=== PATIENT | female | born 1980 | race Caucasian/White ===

== ENCOUNTER 2016-05-08 04:02 | Emergency (ER) | payer BC ==
[2016-05-08] MEDS ORDERED: Sodium Chloride 0.9% 1,000 ML IV ONE (04:24)
[2016-05-08] MEDS ORDERED: Ondansetron 4 MG/2 ML SDV IVPUSH ONE (04:24)
[2016-05-08] MEDS ORDERED: Ketorolac 30 MG/ML SDV IVPUSH ONE (04:25)
[2016-05-08 05:07] LABS: CHLORIDE,CL 100 mmol/L (98-110); SODIUM,NA 134 mmol/L (136-146)
--- NOTE | 2016-05-08 06:50 | EDM.PDOC ---
ED HPI GENERAL MEDICAL PROBLEM - General Chief Complaint: Abdominal Pain Stated Complaint: ABDOMINAL PAIN/HARD TIME BREATHING Time Seen by Provider: 05/08/16 06:01 - History of Present Illness INITIAL COMMENTS - FREE TEXT/NARRATIVE: HISTORY AND PHYSICAL: History of present illness: Patient is a 36-year-old white female who presents with chief complaint of abdominal pain and nausea without vomiting worsening over last 24 hours patient does drink alcohol regularly denies a history of pancreatitis peptic ulcer disease or other concern. She denies trauma denies gallbladder disease or . Review of systems: As per history of present illness and below otherwise all systems reviewed and negative. Past medical history: As per history of present illness and as reviewed below otherwise noncontributory. Surgical history: As per history of present illness and as reviewed below otherwise noncontributory. Social history: No reported history of drug or alcohol abuse. Family history: As per history of present illness and as reviewed below otherwise noncontributory. Physical exam: HEENT: Atraumatic, normocephalic, pupils reactive, negative for conjunctival pallor mild scleral icterus noted, mucous membranes dry, throat clear, neck supple, nontender, trachea midline. Lungs: Clear to auscultation, breath sounds equal bilaterally, chest nontender. Heart: S1S2, regular, negative for clicks, rubs, or JVD. Abdomen: Soft, nondistended, significant tenderness in the upper abdomen mild guarding no rebound. Negative for masses or hepatosplenomegaly. Negative for costovertebral tenderness. Pelvis: Stable nontender. Genitourinary: Deferred. Rectal: Deferred. Extremities: Atraumatic, negative for cords or calf pain. Neurovascular unremarkable. Neuro: Awake, alert, oriented. Cranial nerves II through XII unremarkable. Cerebellum unremarkable. Motor and sensory unremarkable throughout. Exam nonfocal. Diagnostics: CBC CMP lipase amylase UA hCG CT abdomen and pelvis Therapeutics: Normal saline 1 L bolus Toradol 30 mg IV Zofran 4 mg IV Impression: #1 abdominal pain #2 pancreatitis Definitive disposition and diagnosis as appropriate pending reevaluation and review of above. Abdomen Pain Score (Numeric/FACES): 9 - Related Data Allergies Allergy/AdvReac Type Severity Reaction Status Date / Time amoxicillin Allergy Hives Verified 05/08/16 04:14 Penicillins Allergy Hives Verified 09/13/13 03:48 Home Meds: Home Meds Lisinopril 10 mg PO DAILY 05/08/16 [History] Past Medical History - Past Health History Medical/Surgical History: Denies Medical/Surgical History Cardiovascular History: Reports: Hypertension - Past Surgical History Musculoskeletal Surgical History: Reports: Other (see below) Other Musculoskeletal Surgeries/Procedures:: knee surgery Social & Family History - Family History Family Medical History: Noncontributory - Tobacco Use Smoking Status *Q: Current Every Day Smoker Years of Tobacco use: 20 Packs/Tins Daily: 1 - Alcohol Use Days Per Week of Alcohol Use: 7 Number of Drinks Per Day: 2 Total Drinks Per Week: 14 - Recreational Drug Use Recreational Drug Use: No ED ROS GENERAL - Review of Systems Review Of Systems: ROS reveals no pertinent complaints other than HPI. ED EXAM, GENERAL - Physical Exam Exam: See Below (See dictation) Course - Vital Signs Text/Narrative:: I discussed case with hospitalist who feels in light of her liver function tests CT scan and clinical presentation that she would be best served at tertiary care with availability of gastroenterology for consult as needed. I discussed this with patient and family request transfer to [facility]. I discussed case with through one call. He was hospitalist content assistant case was discussed including reason for transfer patient request and our resource limitations. refused to accept patient in transfer. I discussed at length with my concerns regarding his decision. Case was again discussed with patient and family who request discharge and state they will proceed to say in a [place] via private vehicle. All medical records were sent with patient will be discharged AMA. Last Recorded V/S: Last Vital Signs Temp 37.2 C 05/08/16 04:15 Pulse 147 H 05/08/16 04:15 Resp 18 05/08/16 04:15 BP 135/97 H 05/08/16 04:15 Pulse Ox 99 05/08/16 04:15 - Orders/Labs/Meds Orders: Active Orders 24 hr Category Date Time Status Abdomen Pelvis wo Cont [CT] Stat Exams 05/08/16 04:25 Taken Labs: Laboratory Tests 05/08/16 05/08/16 05/08/16 Range/Units 04:20 04:20 04:29 WBC 5.35 (4.0-11.0) K/uL RBC 3.58 L (4.30-5.90) M/uL Hgb 13.0 (12.0-16.0) g/dL Hct 37.1 (36.0-46.0) % MCV 103.6 H (80.0-98.0) fL MCH 36.3 H (27.0-32.0) pg MCHC 35.0 (31.0-37.0) g/dL RDW Std Deviation 48.1 (28.0-62.0) fl RDW Coeff of Alverto 13 (11.0-15.0) % Plt Count 86 L (150-400) K/uL MPV 10.50 (7.40-12.00) fL Neut % (Auto) 73.1 (48.0-80.0) % Lymph % (Auto) 12.5 L (16.0-40.0) % [place] % (Auto) 13.6 (0.0-15.0) % Eos % (Auto) 0.6 (0.0-7.0) % Baso % (Auto) 0.2 (0.0-1.5) % Neut # (Auto) 3.9 (1.4-5.7) K/uL Lymph # (Auto) 0.7 (0.6-2.4) K/uL [place] # (Auto) 0.7 (0.0-0.8) K/uL Eos # (Auto) 0.0 (0.0-0.7) K/uL Baso # (Auto) 0.0 (0.0-0.1) K/uL Nucleated RBC % 0.0 /100WBC Nucleated RBCs # 0 K/uL Sodium (136-146) mmol/L Potassium (3.5-5.1) mmol/L Chloride (98-110) mmol/L Carbon Dioxide (21-31) mmol/L BUN (6.0-23.0) mg/dL Creatinine (0.6-1.5) mg/dL Est Cr Clr Drug Dosing mL/min Estimated GFR (MDRD) ml/min Glucose (60-110) mg/dL Calcium (8.8-10.8) mg/dL Total Bilirubin (0.1-1.5) mg/dL AST (5-40) IU/L ALT (8-54) IU/L Alkaline Phosphatase (40-150) Total Protein (6.0-8.0) g/dL Albumin (3.5-5.0) g/dL Globulin (2.0-3.5) g/dL Albumin/Globulin Ratio (1.3-2.8) Lipase (7-80) U/L Urine Color DARK YELLOW Urine Appearance SLT CLOUDY Urine pH 7.5 (5.0-8.0) Ur Specific [place] 1.010 (1.001-1.035) Urine Protein NEGATIVE (NEGATIVE) mg/dL Urine Glucose (UA) NEGATIVE (NEGATIVE) mg/dL Urine Ketones 15 H (NEGATIVE) mg/dL Urine Occult Blood NEGATIVE (NEGATIVE) Urine Nitrite NEGATIVE (NEGATIVE) Urine Bilirubin MODERATE H (NEGATIVE) Urine Urobilinogen 4.0 H (<2.0) EU/dL Ur Leukocyte Esterase NEGATIVE (NEGATIVE) Urine RBC 0-1 (0-2/HPF) Urine WBC 0-1 (0-5/HPF) Ur Epithelial Cells FEW (NONE-FEW) Urine Bacteria RARE (NEGATIVE) Urine Mucus LIGHT (NONE-MOD) Urine HCG, Qual NEGATIVE (NEGATIVE) 05/08/16 Range/Units 04:29 WBC (4.0-11.0) K/uL RBC (4.30-5.90) M/uL Hgb (12.0-16.0) g/dL Hct (36.0-46.0) % MCV (80.0-98.0) fL MCH (27.0-32.0) pg MCHC (31.0-37.0) g/dL RDW Std Deviation (28.0-62.0) fl RDW Coeff of Alverto (11.0-15.0) % Plt Count (150-400) K/uL MPV (7.40-12.00) fL Neut % (Auto) (48.0-80.0) % Lymph % (Auto) (16.0-40.0) % [place] % (Auto) (0.0-15.0) % Eos % (Auto) (0.0-7.0) % Baso % (Auto) (0.0-1.5) % Neut # (Auto) (1.4-5.7) K/uL Lymph # (Auto) (0.6-2.4) K/uL [place] # (Auto) (0.0-0.8) K/uL Eos # (Auto) (0.0-0.7) K/uL Baso # (Auto) (0.0-0.1) K/uL Nucleated RBC % /100WBC Nucleated RBCs # K/uL Sodium 134 L (136-146) mmol/L Potassium 3.3 L (3.5-5.1) mmol/L Chloride 100 (98-110) mmol/L Carbon Dioxide 23 (21-31) mmol/L BUN 3 L (6.0-23.0) mg/dL Creatinine 0.7 (0.6-1.5) mg/dL Est Cr Clr Drug Dosing 98.05 mL/min Estimated GFR (MDRD) > 60.0 ml/min Glucose 93 (60-110) mg/dL Calcium 8.5 L (8.8-10.8) mg/dL Total Bilirubin 4.6 H (0.1-1.5) mg/dL AST 361 H (5-40) IU/L ALT 177 H (8-54) IU/L Alkaline Phosphatase 137 (40-150) Total Protein 6.9 (6.0-8.0) g/dL Albumin 3.3 L (3.5-5.0) g/dL Globulin 3.6 H (2.0-3.5) g/dL Albumin/Globulin Ratio 0.9 L (1.3-2.8) Lipase 617 H (7-80) U/L Urine Color Urine Appearance Urine pH (5.0-8.0) Ur Specific [place] (1.001-1.035) Urine Protein (NEGATIVE) mg/dL Urine Glucose (UA) (NEGATIVE) mg/dL Urine Ketones (NEGATIVE) mg/dL Urine Occult Blood (NEGATIVE) Urine Nitrite (NEGATIVE) Urine Bilirubin (NEGATIVE) Urine Urobilinogen (<2.0) EU/dL Ur Leukocyte Esterase (NEGATIVE) Urine RBC (0-2/HPF) Urine WBC (0-5/HPF) Ur Epithelial Cells (NONE-FEW) Urine Bacteria (NEGATIVE) Urine Mucus (NONE-MOD) Urine HCG, Qual (NEGATIVE) Meds: Medications Discontinued Medications Generic Name Dose Route Start Last Admin Trade Name Freq PRN Reason Stop Dose Admin Sodium Chloride 1,000 mls @ 999 mls/hr 05/08/16 04:24 05/08/16 04:36 Normal Saline IV 05/08/16 05:24 999 mls/hr .Bolus ONE Administration Ketorolac Tromethamine 30 mg 05/08/16 04:25 05/08/16 04:36 Toradol IVPUSH 05/08/16 04:26 30 mg ONETIME ONE Administration Ondansetron HCl 4 mg 05/08/16 04:24 05/08/16 04:36 Zofran IVPUSH 05/08/16 04:25 4 mg ONETIME ONE Administration Departure - Departure Time of Disposition: 06:50 Disposition: Against Medical Advice 07 Condition: good Clinical Impression: Acute pancreatitis Instructions: Acute Pancreatitis, [id number] Referrals: PCP,None [Primary Care Provider] - Forms: ED Department Discharge Additional Instructions: The following information is given to patients seen in the emergency department who are being discharged to home. This information is to outline your options for follow-up care. We provide all patients seen in our emergency department with a follow-up referral. The need for follow-up, as well as the timing and circumstances, are variable depending upon the specifics of your emergency department visit. If you don't have a primary care physician on staff, we will provide you with a referral. We always advise you to contact your personal physician following an emergency department visit to inform them of the circumstance of the visit and for follow-up with them and/or the need for any referrals to a consulting specialist. The emergency department will also refer you to a specialist when appropriate. This referral assures that you have the opportunity for followup care with a specialist. All of these measure are taken in an effort to provide you with optimal care, which includes your followup. Under all circumstances we always encourage you to contact your private physician who remains a resource for coordinating your care. When calling for followup care, please make the office aware that this follow-up is from your recent emergency room visit. If for any reason you are refused follow-up, please contact the [facility] emergency department at and asked to speak to the emergency department charge nurse. Followup as discussed [facility] with [facility] as planned return as needed as discussed. - My Orders Last 24 Hours: My Active Orders 05/08/16 04:25 Abdomen Pelvis wo Cont [CT] Stat - Assessment/Plan Last 24 Hours: My Active Orders 05/08/16 04:25 Abdomen Pelvis wo Cont [CT] Stat
[2016-05-08 07:06] VITALS: BP 114/86
--- NOTE | 2016-05-08 19:43 | CT ---
MEXAM DATE: 05/08/16 PATIENT'S AGE: 36 Patient: ROBERTH DE GUZMAN Facility: [place], [place] Site . Site : 1980 Study: CT Abdomen/Pelvis [id number]/[id number] 5:03:31 AM Ordering Physician: Doctor Sotomayor Final Report: INDICATION: Slight fever. TECHNIQUE: CT abdomen and pelvis acquired without contrast. COMPARISON: None. FINDINGS: Lower chest: Bibasilar scarring or atelectasis, left greater than right. No pleural or pericardial effusions. Liver: Fatty change. The unenhanced liver is otherwise unremarkable. Spleen: Unremarkable. Pancreas: Mild peripancreatic stranding. There is heterogeneous stranding which extends into the mesentery and retroperitoneum. No well-defined peripancreatic fluid collection. Gallbladder and bile ducts: Unremarkable. Kidneys: Unremarkable. Adrenal glands: Unremarkable. GI tract: No bowel obstruction. The appendix is normal in appearance. Small to moderate amount of pelvic free fluid. Vascular structures: Unremarkable. Lymph nodes: Unremarkable. Pelvic Organs: Uterus, bilateral adnexal regions and urinary bladder as imaged are unremarkable. Bones: No acute abnormality. IMPRESSION: Acute pancreatitis. No well-defined peripancreatic fluid collection or evidence of ghazal pancreatic necrosis. Small to moderate amount of pelvic free fluid. Fatty change of the liver. Dictated by Valentin Iverson MD @ 05/08/2016 5:15:57 AM Dictated by: Valentin Iverson MD @ 05/08/2016 05:16:22 (Electronic Signature) Report Signed by Proxy and Original Signed Document filed in the Medical Record. MTDD
== END 2016-05-08 07:02 | disposition left against medical advice (07) ==
LOC: MW.ED 04:02
DX: K85.90 Acute pancreatitis without necrosis or infection, unspecified (principal); I10 Essential (primary) hypertension; F17.210 Nicotine dependence, cigarettes, uncomplicated; Z88.0 Allergy status to penicillin; Z88.1 Allergy status to other antibiotic agents
CPT/HCPCS: 36415; 74176; 80053; 81001; 81025; 83690; 85025; 96361; 96374; 96375; 99284; J1885; J2405; J7040

== ENCOUNTER 2016-10-04 12:22 | Inpatient (IN) | payer BC ==
[2016-10-04] MEDS ORDERED: Sodium Chloride 0.9% 1,000 ML IV ONE (12:34)
[2016-10-04] MEDS ORDERED: Sodium Chloride 0.9% 10 ML Syringe FLUSH PRN (12:34)
[2016-10-04] MEDS ORDERED: Sodium Chloride 0.9% 2.5 ML Syringe FLUSH PRN (12:34)
[2016-10-04] MEDS ORDERED: Ondansetron 4 MG/2 ML SDV IVPUSH ONE (12:38)
--- NOTE | 2016-10-04 12:38 | EDM.PDOC ---
ED HPI GENERAL MEDICAL PROBLEM - General Chief Complaint: General Stated Complaint: SOB,BACK AND ABDOMINAL PAIN Time Seen by Provider: 10/04/16 12:23 - History of Present Illness INITIAL COMMENTS - FREE TEXT/NARRATIVE: HISTORY AND PHYSICAL: History of present illness: Patient 36-year-old female history of pancreatitis and alcohol abuse who presents with concern of abdominal pain this been worse over the last 24-48 hours she also complains of back pain some shortness of breath she denies vomiting diarrhea vaginal discharge or irregular bleeding or other complaints Review of systems: As per history of present illness and below otherwise all systems reviewed and negative. Past medical history: As per history of present illness and as reviewed below otherwise noncontributory. Surgical history: As per history of present illness and as reviewed below otherwise noncontributory. Social history: No reported history of drug or alcohol abuse. Family history: As per history of present illness and as reviewed below otherwise noncontributory. Physical exam: HEENT: Atraumatic, normocephalic, pupils reactive, negative for conjunctival pallor or scleral icterus, mucous membranes moist, throat clear, neck supple, nontender, trachea midline. Lungs: Clear to auscultation, breath sounds equal bilaterally, chest nontender. Heart: S1S2, regular, negative for clicks, rubs, or JVD. Abdomen: Soft, nondistended, tenderness across her upper abdomen to deep palpation no rebound no guarding. Negative for masses or hepatosplenomegaly. Negative for costovertebral tenderness. Pelvis: Stable nontender. Genitourinary: Deferred. Rectal: Deferred. Extremities: Atraumatic, negative for cords or calf pain. Neurovascular unremarkable. Neuro: Awake, alert, oriented. Cranial nerves II through XII unremarkable. Cerebellum unremarkable. Motor and sensory unremarkable throughout. Exam nonfocal. Diagnostics: CBC CMP troponin BNP lipase PT/INR chest x-ray EKG CT of abdomen and pelvis Therapeutics: Normal saline 1 L bolus Zofran 4 mg IV Impression: #1 abdominal pain #2 history of pancreatitis #3 history of alcohol abuse Definitive disposition and diagnosis as appropriate pending reevaluation and review of above. Abdominal Pain Score (Numeric/FACES): 10 - Related Data Allergies Allergy/AdvReac Type Severity Reaction Status Date / Time amoxicillin Allergy Hives Verified 05/08/16 04:14 Penicillins Allergy Hives Verified 09/13/13 03:48 Home Meds: Home Meds Lisinopril 10 mg PO DAILY 05/08/16 [History] Past Medical History - Past Health History Medical/Surgical History: Denies Medical/Surgical History Cardiovascular History: Reports: Hypertension - Past Surgical History Musculoskeletal Surgical History: Reports: Other (See Below) Social & Family History - Family History Family Medical History: Noncontributory - Tobacco Use Smoking Status *Q: Current Every Day Smoker Years of Tobacco use: 10 Packs/Tins Daily: 0.5 - Alcohol Use Days Per Week of Alcohol Use: 5 Number of Drinks Per Day: 4 Total Drinks Per Week: 20 - Recreational Drug Use Recreational Drug Use: No ED ROS GENERAL - Review of Systems Review Of Systems: ROS reveals no pertinent complaints other than HPI. ED EXAM, GENERAL - Physical Exam Exam: See Below (See dictated) Course - Vital Signs Last Recorded V/S: Last Vital Signs Temp 35.8 C 10/04/16 12:24 Pulse 82 10/04/16 12:24 Resp 18 10/04/16 12:24 BP 180/98 H 10/04/16 12:24 Pulse Ox 99 10/04/16 12:24 - Orders/Labs/Meds Orders: Active Orders 24 hr Category Date Time Status EKG Documentation Completion [RC] STAT Care 10/04/16 12:33 Active Pulse Oximetry [RC] ASDIRECTED Care 10/04/16 12:33 Active Abdomen Pelvis w Cont [CT] Stat Exams 10/04/16 12:34 Ordered COMPREHENSIVE METABOLIC PN,CMP [CHEM] Stat Lab 10/04/16 12:42 Results CULTURE BLOOD [BC] Stat Lab 10/04/16 12:42 Received CULTURE BLOOD [BC] Stat Lab 10/04/16 12:53 Received DRUG SCREEN, URINE [URCHEM] Stat Lab 10/04/16 12:39 Uncollected ETHANOL BLOOD MEDICAL [CHEM] Stat Lab 10/04/16 12:42 Results LIPASE [CHEM] Stat Lab 10/04/16 12:42 Results UA W/MICROSCOPIC [URIN] Stat Lab 10/04/16 12:34 Uncollected Sodium Chloride 0.9% [Saline Flush] Med 10/04/16 12:34 Active 10 ml FLUSH ASDIRECTED PRN Sodium Chloride 0.9% [Saline Flush] Med 10/04/16 12:34 Active 2.5 ml FLUSH ASDIRECTED PRN Blood Culture x2 Reflex Set [OM.PC] Stat Oth 10/04/16 12:34 Ordered Saline Lock Insert [OM.PC] Stat Ot 10/04/16 12:33 Ordered Medication Orders Sodium Chloride (Saline Flush) 10 ml FLUSH ASDIRECTED PRN PRN Reason: Keep Vein Open Sodium Chloride (Saline Flush) 2.5 ml FLUSH ASDIRECTED PRN PRN Reason: Keep Vein Open Labs: Laboratory Tests 10/04/16 10/04/16 10/04/16 Range/Units 12:42 12:42 12:42 WBC 8.98 (4.0-11.0) K/uL RBC 4.22 L (4.30-5.90) M/uL Hgb 15.2 (12.0-16.0) g/dL Hct 41.7 (36.0-46.0) % MCV 98.8 H (80.0-98.0) fL MCH 36.0 H (27.0-32.0) pg MCHC 36.5 (31.0-37.0) g/dL RDW Std Deviation 43.7 (28.0-62.0) fl RDW Coeff of Alverto 12 (11.0-15.0) % Plt Count 185 (150-400) K/uL MPV 9.70 (7.40-12.00) fL Neut % (Auto) 88.6 H (48.0-80.0) % Lymph % (Auto) 7.0 L (16.0-40.0) % [place] % (Auto) 4.3 (0.0-15.0) % Eos % (Auto) 0.0 (0.0-7.0) % Baso % (Auto) 0.1 (0.0-1.5) % Neut # (Auto) 8.0 H (1.4-5.7) K/uL Lymph # (Auto) 0.6 (0.6-2.4) K/uL [place] # (Auto) 0.4 (0.0-0.8) K/uL Eos # (Auto) 0.0 (0.0-0.7) K/uL Baso # (Auto) 0.0 (0.0-0.1) K/uL Nucleated RBC % 0.0 /100WBC Nucleated RBCs # 0 K/uL INR 1.05 (0.86-1.11) Sodium 136 (136-146) mmol/L Potassium 3.6 (3.5-5.1) mmol/L Chloride 99 (98-110) mmol/L Carbon Dioxide 18 L (21-31) mmol/L BUN 6 (6.0-23.0) mg/dL Creatinine 0.7 (0.6-1.5) mg/dL Est Cr Clr Drug Dosing 98.05 mL/min Estimated GFR (MDRD) > 60.0 ml/min Glucose 116 H (60-110) mg/dL Calcium 9.6 (8.8-10.8) mg/dL Total Bilirubin 1.5 (0.1-1.5) mg/dL AST 100 H (5-40) IU/L ALT 65 H (8-54) IU/L Alkaline Phosphatase 122 (40-150) Troponin I (0.0-0.29) NG/ML B-Natriuretic Peptide (<100) PG/ML Total Protein 8.2 H (6.0-8.0) g/dL Albumin 4.2 (3.5-5.0) g/dL Globulin 4.0 H (2.0-3.5) g/dL Albumin/Globulin Ratio 1.1 L (1.3-2.8) HCG, Qual (NEG) Ethyl Alcohol 17.1 mg/dL 10/04/16 10/04/16 10/04/16 Range/Units 12:42 12:42 12:42 WBC (4.0-11.0) K/uL RBC (4.30-5.90) M/uL Hgb (12.0-16.0) g/dL Hct (36.0-46.0) % MCV (80.0-98.0) fL MCH (27.0-32.0) pg MCHC (31.0-37.0) g/dL RDW Std Deviation (28.0-62.0) fl RDW Coeff of Alverto (11.0-15.0) % Plt Count (150-400) K/uL MPV (7.40-12.00) fL Neut % (Auto) (48.0-80.0) % Lymph % (Auto) (16.0-40.0) % [place] % (Auto) (0.0-15.0) % Eos % (Auto) (0.0-7.0) % Baso % (Auto) (0.0-1.5) % Neut # (Auto) (1.4-5.7) K/uL Lymph # (Auto) (0.6-2.4) K/uL [place] # (Auto) (0.0-0.8) K/uL Eos # (Auto) (0.0-0.7) K/uL Baso # (Auto) (0.0-0.1) K/uL Nucleated RBC % /100WBC Nucleated RBCs # K/uL INR (0.86-1.11) Sodium (136-146) mmol/L Potassium (3.5-5.1) mmol/L Chloride (98-110) mmol/L Carbon Dioxide (21-31) mmol/L BUN (6.0-23.0) mg/dL Creatinine (0.6-1.5) mg/dL Est Cr Clr Drug Dosing mL/min Estimated GFR (MDRD) ml/min Glucose (60-110) mg/dL Calcium (8.8-10.8) mg/dL Total Bilirubin (0.1-1.5) mg/dL AST (5-40) IU/L ALT (8-54) IU/L Alkaline Phosphatase (40-150) Troponin I < 0.10 (0.0-0.29) NG/ML B-Natriuretic Peptide 27 (<100) PG/ML Total Protein (6.0-8.0) g/dL Albumin (3.5-5.0) g/dL Globulin (2.0-3.5) g/dL Albumin/Globulin Ratio (1.3-2.8) HCG, Qual NEGATIVE (NEG) Ethyl Alcohol mg/dL Meds: Medications Generic Name Dose Route Start Last Admin Trade Name Freq PRN Reason Stop Dose Admin Sodium Chloride 10 ml 10/04/16 12:34 Saline Flush FLUSH ASDIRECTED PRN Keep Vein Open Sodium Chloride 2.5 ml 10/04/16 12:34 Saline Flush FLUSH ASDIRECTED PRN Keep Vein Open Discontinued Medications Generic Name Dose Route Start Last Admin Trade Name Freq PRN Reason Stop Dose Admin Hydromorphone HCl 1 mg 10/04/16 12:49 10/04/16 12:58 Dilaudid IVPUSH 10/04/16 12:50 1 mg ONETIME ONE Administration Sodium Chloride 1,000 mls @ 999 mls/hr 10/04/16 12:34 10/04/16 12:53 Normal Saline IV 10/04/16 13:34 999 mls/hr STAT ONE Administration Iopamidol 100 ml 10/04/16 13:50 10/04/16 13:59 Isovue Multipack-370 (76%) IVPUSH 10/04/16 13:51 100 ml ONETIME STA Administration Ondansetron HCl 4 mg 10/04/16 12:38 10/04/16 12:54 Zofran IVPUSH 10/04/16 12:39 4 mg ONETIME ONE Administration Departure - Departure Time of Disposition: 14:04 Disposition: Admitted As Inpatient 66 Condition: Good Clinical Impression: Abdominal pain - Discharge Information Forms: ED Department Discharge - My Orders Last 24 Hours: My Active Orders 10/04/16 12:33 EKG Documentation Completion [RC] STAT Pulse Oximetry [RC] ASDIRECTED Saline Lock Insert [OM.PC] Stat 10/04/16 12:34 Abdomen Pelvis w Cont [CT] Stat UA W/MICROSCOPIC [URIN] Stat Sodium Chloride 0.9% [Saline Flush] 10 ml FLUSH ASDIRECTED PRN Sodium Chloride 0.9% [Saline Flush] 2.5 ml FLUSH ASDIRECTED PRN Blood Culture x2 Reflex Set [OM.PC] Stat 10/04/16 12:39 DRUG SCREEN, URINE [URCHEM] Stat 10/04/16 12:42 COMPREHENSIVE METABOLIC PN,CMP [CHEM] Stat CULTURE BLOOD [BC] Stat ETHANOL BLOOD MEDICAL [CHEM] Stat LIPASE [CHEM] Stat 10/04/16 12:53 CULTURE BLOOD [BC] Stat - Assessment/Plan Last 24 Hours: My Active Orders 10/04/16 12:33 EKG Documentation Completion [RC] STAT Pulse Oximetry [RC] ASDIRECTED Saline Lock Insert [OM.PC] Stat 10/04/16 12:34 Abdomen Pelvis w Cont [CT] Stat UA W/MICROSCOPIC [URIN] Stat Sodium Chloride 0.9% [Saline Flush] 10 ml FLUSH ASDIRECTED PRN Sodium Chloride 0.9% [Saline Flush] 2.5 ml FLUSH ASDIRECTED PRN Blood Culture x2 Reflex Set [OM.PC] Stat 10/04/16 12:39 DRUG SCREEN, URINE [URCHEM] Stat 10/04/16 12:42 COMPREHENSIVE METABOLIC PN,CMP [CHEM] Stat CULTURE BLOOD [BC] Stat ETHANOL BLOOD MEDICAL [CHEM] Stat LIPASE [CHEM] Stat 10/04/16 12:53 CULTURE BLOOD [BC] Stat
[2016-10-04] MEDS ORDERED: HYDROmorphone 1 MG/ML Syringe IVPUSH ONE (12:49)
[2016-10-04 13:29] LABS: CHLORIDE,CL 99 mmol/L (98-110); SODIUM,NA 136 mmol/L (136-146)
--- NOTE | 2016-10-04 13:29 | CR ---
EXAMINATION: Portable chest radiograph. HISTORY: Shortness of breath. FINDINGS: The trachea is midline. The cardiomediastinal silhouette is within normal limits. No pulmonary infil trates, effusions or pneumothorax. Osseous structures appear unremarkable. IMPRESSION: No acute cardiopulmonary process.
[2016-10-04] MEDS ORDERED: Iopamidol 755 MG/ML 500 ML Multipack Bottle IVPUSH STA (13:50)
--- NOTE | 2016-10-04 14:19 | CT ---
CT of the abdomen and pelvis with contrast. HISTORY: Pain TECHNIQUE: Axial CT images were obtained of the abdomen and pelvis following administration of 100 m L of Isovue-370 in left antecubital fossa without complication. Coronal and sagittal reconstructions obtained. FINDINGS: The lung bases are clear, no pleural effusion. There is fatty infiltration of the liver. The gallbladder, adrenal glands, and spleen appear normal. There is moderate peripancreatic stranding and fluid noted. No organized peripancreatic collection or hypoenhancement. The splenic vein appears patent. No bulky retroperitoneal lymphadenopathy or abd ominal ascites. The kidneys enhance and function symmetrically without evidence of obstructive uropathy. There is a small amount of free pelvic fluid. The large and small bowel are normal in caliber withou t evidence of obstruction. No focal pericolonic inflammation or stranding. Appendix appears normal. The urinary bladder is decompressed. No pelvic lymphadenopathy. No suspicious osseous abnormalities identified. IMPRESSION: 1. Acute pancreatitis. 2. Fatty infiltration of the liver.
--- NOTE | 2016-10-04 14:21 | PCM.HP ---
H&P History of Present Illness - General Date of Service: 10/04/16 Admit Problem/Dx: Admission Diagnosis/Problem Admission Diagnosis/Problem Abdominal pain Source of Information: Patient, Old Records, Provider - History of Present Illness Initial Comments - Free Text/Narative: She presented to the ED today with abdominal pain . She had a period of heavy alcohol intake yesterday. She was thought to have acute pancreatitis inthe ED and admission was recommended. She reports vomiting She thinks that she has had pancreatitis previously. Abdominal Pain Score (Numeric/FACES): 10 - Related Data Allergies/Adverse Reactions: Allergies Allergy/AdvReac Type Severity Reaction Status Date / Time amoxicillin Allergy Hives Verified 05/08/16 04:14 Penicillins Allergy Hives Verified 09/13/13 03:48 Home Medications: Home Meds Lisinopril 10 mg PO DAILY 05/08/16 [History] Past Medical History - Past Health History Medical/Surgical History: Denies Medical/Surgical History Cardiovascular History: Reports: Hypertension. Denies: Bypass, Heart Failure, [place] Respiratory History: Denies: COPD Gastrointestinal History: Denies: Cirrhosis Genitourinary History: Denies: Chronic Renal Insuffiency Neurological History: Denies: MS Endocrine/Metabolic History: Denies: Diabetes, Type I, Diabetes, Type II Hematologic History: Denies: Bleeding Disorder Oncologic (Cancer) History: Reports: None - Past Surgical History Musculoskeletal Surgical History: Reports: Other (See Below) Social & Family History - Family History Family Medical History: Noncontributory - Tobacco Use Smoking Status *Q: Current Every Day Smoker Years of Tobacco use: 10 Packs/Tins Daily: 0.5 - Alcohol Use Days Per Week of Alcohol Use: 5 Number of Drinks Per Day: 4 Total Drinks Per Week: 20 Alcohol Use Comment: she does not use alcohol daily but sometimes has binge drinking. - Recreational Drug Use Recreational Drug Use: No H&P Review of Systems - Review of Systems: Review Of Systems: See Below General: Denies: Fever, Chills HEENT: Denies: Hearing Changes, Sore Throat Pulmonary: Denies: Shortness of Breath, Cough, Sputum Cardiovascular: Denies: Chest Pain, Palpitations Gastrointestinal: Reports: Abdominal Pain. Denies: Black Stool, Bloody Stool, Hematemesis, Hematochezia Genitourinary: Denies: Dysuria, Frequency, Burning, Pain, Urgency, Hematuria Skin: Denies: Cyanosis Psychiatric: Denies: Confusion, Depression Neurological: Denies: Headache Exam - Exam Exam: See Below - Vital Signs Vital Signs: Last Vital Signs Temp 96.4 F 10/04/16 12:24 Pulse 82 10/04/16 12:24 Resp 18 10/04/16 12:24 BP 180/98 H 10/04/16 12:24 Pulse Ox 99 10/04/16 12:24 Weight: 63.503 kg - Exam General: Alert, Oriented, Cooperative. No: Mild Distress HEENT: EOMI Neck: Supple, Trachea Midline Lungs: Clear to Auscultation, Normal Respiratory Effort Cardiovascular: Regular Rate, Regular Rhythm. No: Irregular Rhythm, Systolic Murmur, Diastolic Murmur GI/Abdominal Exam: Soft, Other (moderate epigastric tenderness) (Female) Exam: Deferred Rectal (Female) Exam: Deferred Neurological: Cranial Nerves Intact, Normal Speech Neuro Extensive - Mental Status: Alert Neuro Extensive - Motor, Sensory, Reflexes: Other (no tremor) Psychiatric: Alert. No: Agitated - Patient Data Lab Results Last 24 hrs: Laboratory Results - last 24 hr 10/04/16 10/04/16 10/04/16 Range/Units 12:42 12:42 12:42 WBC 8.98 (4.0-11.0) K/uL RBC 4.22 L (4.30-5.90) M/uL Hgb 15.2 (12.0-16.0) g/dL Hct 41.7 (36.0-46.0) % MCV 98.8 H (80.0-98.0) fL MCH 36.0 H (27.0-32.0) pg MCHC 36.5 (31.0-37.0) g/dL RDW Std Deviation 43.7 (28.0-62.0) fl RDW Coeff of Alverto 12 (11.0-15.0) % Plt Count 185 (150-400) K/uL MPV 9.70 (7.40-12.00) fL Neut % (Auto) 88.6 H (48.0-80.0) % Lymph % (Auto) 7.0 L (16.0-40.0) % [place] % (Auto) 4.3 (0.0-15.0) % Eos % (Auto) 0.0 (0.0-7.0) % Baso % (Auto) 0.1 (0.0-1.5) % Neut # (Auto) 8.0 H (1.4-5.7) K/uL Lymph # (Auto) 0.6 (0.6-2.4) K/uL [place] # (Auto) 0.4 (0.0-0.8) K/uL Eos # (Auto) 0.0 (0.0-0.7) K/uL Baso # (Auto) 0.0 (0.0-0.1) K/uL Nucleated RBC % 0.0 /100WBC Nucleated RBCs # 0 K/uL INR 1.05 (0.86-1.11) Sodium 136 (136-146) mmol/L Potassium 3.6 (3.5-5.1) mmol/L Chloride 99 (98-110) mmol/L Carbon Dioxide 18 L (21-31) mmol/L BUN 6 (6.0-23.0) mg/dL Creatinine 0.7 (0.6-1.5) mg/dL Est Cr Clr Drug Dosing 98.05 mL/min Estimated GFR (MDRD) > 60.0 ml/min Glucose 116 H (60-110) mg/dL Calcium 9.6 (8.8-10.8) mg/dL Total Bilirubin 1.5 (0.1-1.5) mg/dL AST 100 H (5-40) IU/L ALT 65 H (8-54) IU/L Alkaline Phosphatase 122 (40-150) Troponin I (0.0-0.29) NG/ML B-Natriuretic Peptide (<100) PG/ML Total Protein 8.2 H (6.0-8.0) g/dL Albumin 4.2 (3.5-5.0) g/dL Globulin 4.0 H (2.0-3.5) g/dL Albumin/Globulin Ratio 1.1 L (1.3-2.8) HCG, Qual (NEG) Ethyl Alcohol 17.1 mg/dL 10/04/16 10/04/16 10/04/16 Range/Units 12:42 12:42 12:42 WBC (4.0-11.0) K/uL RBC (4.30-5.90) M/uL Hgb (12.0-16.0) g/dL Hct (36.0-46.0) % MCV (80.0-98.0) fL MCH (27.0-32.0) pg MCHC (31.0-37.0) g/dL RDW Std Deviation (28.0-62.0) fl RDW Coeff of Alverto (11.0-15.0) % Plt Count (150-400) K/uL MPV (7.40-12.00) fL Neut % (Auto) (48.0-80.0) % Lymph % (Auto) (16.0-40.0) % [place] % (Auto) (0.0-15.0) % Eos % (Auto) (0.0-7.0) % Baso % (Auto) (0.0-1.5) % Neut # (Auto) (1.4-5.7) K/uL Lymph # (Auto) (0.6-2.4) K/uL [place] # (Auto) (0.0-0.8) K/uL Eos # (Auto) (0.0-0.7) K/uL Baso # (Auto) (0.0-0.1) K/uL Nucleated RBC % /100WBC Nucleated RBCs # K/uL INR (0.86-1.11) Sodium (136-146) mmol/L Potassium (3.5-5.1) mmol/L Chloride (98-110) mmol/L Carbon Dioxide (21-31) mmol/L BUN (6.0-23.0) mg/dL Creatinine (0.6-1.5) mg/dL Est Cr Clr Drug Dosing mL/min Estimated GFR (MDRD) ml/min Glucose (60-110) mg/dL Calcium (8.8-10.8) mg/dL Total Bilirubin (0.1-1.5) mg/dL AST (5-40) IU/L ALT (8-54) IU/L Alkaline Phosphatase (40-150) Troponin I < 0.10 (0.0-0.29) NG/ML B-Natriuretic Peptide 27 (<100) PG/ML Total Protein (6.0-8.0) g/dL Albumin (3.5-5.0) g/dL Globulin (2.0-3.5) g/dL Albumin/Globulin Ratio (1.3-2.8) HCG, Qual NEGATIVE (NEG) Ethyl Alcohol mg/dL Result Diagrams: 10/04/16 12:42 10/04/16 12:42 *Q Meaningful Use (ADM) - VTE *Q VTE Criteria *Q: - Stroke *Q Stroke Criteria *Q: - AMI *Q AMI Criteria *Q: - Problem List (1) Abdominal pain SNOMED Code(s): 70265963 ICD Code: R10.9 - UNSPECIFIED ABDOMINAL PAIN Status: Acute Current Visit : Yes (2) Alcohol abuse SNOMED Code(s): 71201873 ICD Code: F10.10 - ALCOHOL ABUSE, UNCOMPLICATED Status: Acute Current Visit: Yes (3) Elevated liver enzymes SNOMED Code(s): 897874694 ICD Code: R74.8 - ABNORMAL LEVELS OF OTHER SERUM ENZYMES Status: Acute Current Visit: Yes Problem List Initiated/Reviewed/Updated: Yes Orders Last 24hrs: Active Orders 24 hr Category Date Time Status Patient Status [ADT] Stat ADT 10/04/16 14:06 Active EKG Documentation Completion [RC] STAT Care 10/04/16 12:33 Active Pulse Oximetry [RC] ASDIRECTED Care 10/04/16 12:33 Active Abdomen Pelvis w Cont [CT] Stat Exams 10/04/16 12:34 Taken COMPREHENSIVE METABOLIC PN,CMP [CHEM] Stat Lab 10/04/16 12:42 Results CULTURE BLOOD [BC] Stat Lab 10/04/16 12:42 Received CULTURE BLOOD [BC] Stat Lab 10/04/16 12:53 Received DRUG SCREEN, URINE [URCHEM] Stat Lab 10/04/16 14:10 Ordered ETHANOL BLOOD MEDICAL [CHEM] Stat Lab 10/04/16 12:42 Results LIPASE [CHEM] Stat Lab 10/04/16 12:42 Results UA W/MICROSCOPIC [URIN] Stat Lab 10/04/16 14:10 Ordered Sodium Chloride 0.9% [Saline Flush] Med 10/04/16 12:34 Active 10 ml FLUSH ASDIRECTED PRN Sodium Chloride 0.9% [Saline Flush] Med 10/04/16 12:34 Active 2.5 ml FLUSH ASDIRECTED PRN Blood Culture x2 Reflex Set [OM.PC] Stat Oth 10/04/16 12:34 Ordered Saline Lock Insert [OM.PC] Stat Oth 10/04/16 12:33 Ordered Medication Orders Sodium Chloride (Saline Flush) 10 ml FLUSH ASDIRECTED PRN PRN Reason: Keep Vein Open Sodium Chloride (Saline Flush) 2.5 ml FLUSH ASDIRECTED PRN PRN Reason: Keep Vein Open Assessment/Plan Comment:: abdominal pain. Must consider alcoholic gastritis/ pancreatitis. See orders. Ronal Hernandez MD
[2016-10-04] MEDS ORDERED: Sodium Chloride 0.9% 1,000 ML IV SCH (14:30)
[2016-10-04] MEDS ORDERED: Acetaminophen 325 MG Tab PO PRN (14:30)
[2016-10-04] MEDS ORDERED: LORazepam 2 MG/ML MDV IV PRN (14:30)
[2016-10-04] MEDS ORDERED: Temazepam 15 MG Cap PO PRN (14:30)
[2016-10-04] MEDS ORDERED: Morphine 10 MG/ML Syringe IVPUSH PRN (14:30)
[2016-10-04] MEDS ORDERED: MVI, Adult with Vitamin K 10 ML, Thiamine 100 MG, Folic Acid 1 MG in Sodium Chloride 0.... IV ONE ×4 (15:00)
[2016-10-04] MEDS: Lisinopril 10 MG Tab PO SCH (15:09)
[2016-10-04] MEDS: Ondansetron 4 MG/2 ML SDV IVPUSH PRN ×2 (16:56→23:55)
[2016-10-04] MEDS: Morphine 2 MG/ML Syringe IVPUSH PRN ×2 (18:46→21:39)
[2016-10-05] MEDS: Morphine 2 MG/ML Syringe IVPUSH PRN (00:06)
[2016-10-05] MEDS ORDERED: Pantoprazole 40 MG in Sodium Chloride 0.9% 10 ML IVPUSH SCH (02:30)
[2016-10-05] MEDS ORDERED: Magnesium Sulfate/Water 4 GM in Premix Bag 1 BAG IV ONE (08:23)
[2016-10-05] MEDS ORDERED: Potassium Chloride 40 MEQ in Sodium Chloride 0.9% 500 ML IV ONE (08:23)
[2016-10-05] MEDS: Lisinopril 10 MG Tab PO SCH (09:33)
[2016-10-05] MEDS ORDERED: Potassium Chloride 20 MEQ Tab.ER PO ONE (09:35)
--- NOTE | 2016-10-05 10:51 | US ---
EXAMINATION: Right upper quadrant HISTORY: Elevated LFTs COMPARISON: CT dated 10/04/2016 TECHNIQUE: Grayscale and color Doppler images obtained of the right upper quadrant. FINDINGS: The pancreas appears heterogeneous and hypoechoic. The liver is at least moderately increas ed in generalized echotexture without a focal hepatic mass. The gallbladder wall thickness is normal. No pericholecystic fluid or shadowing gallstones. The right kidney measures at least 10.6 cm pole-to -pole without evidence hydronephrosis. Sonographic Lagunas sign is negative. IMPRESSION: 1. Hypoechoic heterogeneous pancreas consistent with pancreatitis. 2. Moderate to severe fatty infiltration of the liver.
[2016-10-05 10:59] LABS: CHLORIDE,CL 101 mmol/L (98-110); SODIUM,NA 134 mmol/L (136-146)
--- NOTE | 2016-10-05 11:29 | PCM.DCSUM1 ---
Discharge Summary - Hospital Course Brief History: This 36 year old female admitted with abdominal pain. She reported having a period of heavy alcohol intake 10/03/2016 and today admitted that she has been drinking heavily recently. She reports vomiting. She thinks that she has had pancreatitis previously. In the ED WBC WNL, LFTs slightly elevated, Lipase 3624. Abdominal CT revealed acute pancreatitis and fatty infiltration of the liver. She was admitted for acute pancreatitis - Discharge Data Discharge Date: 10/05/16 Discharge Disposition: Home, Self-Care 01 Condition: Good - Discharge Diagnosis/Problem(s) (1) Acute pancreatitis SNOMED Code(s): 454545616 ICD Code: K85.90 - ACUTE PANCREATITIS WITHOUT NECROSIS OR INFECTION, UNSP Status: Acute (2) Alcohol abuse SNOMED Code(s): 60905018 ICD Code: F10.10 - ALCOHOL ABUSE, UNCOMPLICATED Status: Acute (3) Elevated liver enzymes SNOMED Code(s): 973356741 ICD Code: R74.8 - ABNORMAL LEVELS OF OTHER SERUM ENZYMES Status: Acute (4) HTN (hypertension) SNOMED Code(s): 99934289 ICD Code: I10 - ESSENTIAL (PRIMARY) HYPERTENSION Status: Chronic Qualifiers: Hypertension type: essential hypertension Qualified Code(s): I10 - Essential (primary) hypertension - Patient Instructions Diet: Full Liquid Diet (Continue for next couple days, then slowly advance to low fat regular diet) Activity: As Tolerated Driving: May Drive Today Showering/Bathing: May Shower Notify Provider of: Fever, Increased Pain, Swelling and Redness, Drainage, Nausea and/or Vomiting - Discharge Plan Home Medications: Home Meds Lisinopril 10 mg PO DAILY 05/08/16 [History] Patient Handouts: Acute Pancreatitis, [id number] Referrals: Shantell Telles NP [Ordering Only Provider] - 10/12/16 10:15 am - Discharge Summary/Plan Comment DC Time >30 min.: No Discharge Summary/Plan Comment: Discharge Diagnoses: Acute alcohol induced pancreatitis HTN Brenda was admitted and treated with IVFs and PRN analgesia. Abdominal US completed with revealed hypechoic heterogenous pancreas consistent with pancreatitis and moderate to severe fatty infiltration of the liver, no stones and gallbladder wall thickness normal. This morning she was tolerating CL diet and requesting discharge home. Hypokalemia and hypomagnesemia noted, she was given oral Potassium and IV magnesium prior to discharge. Sobriety highly encouraged which she verbalized understanding and they she was going to stay away from alcohol. She was discharged home today, encouraged to continue with FL diet for next couple days, then slowly advance to LF regular diet. She is to follow up with PCP as scheduled. She is to return to ED or clinic if concerns should arise. - General Info Date of Service: 10/05/16 Admission Dx/Problem (Free Text: Admission Diagnosis/Problem Admission Diagnosis/Problem Abdominal pain Subjective Update: Denies abdominal pain, scant tenderness to palpation. passing flatus, tolerating CL diet. No chest pain or SOB Functional Status: Reports: Pain Controlled, Tolerating Diet, Ambulating, Urinating - Review of Systems General: Reports: No Symptoms. Denies: Fever, Weakness, Fatigue HEENT: Reports: No Symptoms. Denies: Contact Lenses Pulmonary: Reports: No Symptoms. Denies: Shortness of Breath, Cough, Sputum Cardiovascular: Reports: No Symptoms. Denies: Chest Pain, Palpitations, Edema Gastrointestinal: Reports: No Symptoms. Denies: Abdominal Pain, Flatus, Nausea , Vomiting Genitourinary: Reports: No Symptoms. Denies: Dysuria, Frequency, Burning Musculoskeletal: Reports: No Symptoms Skin: Reports: No Symptoms Neurological: Reports: No Symptoms Psychiatric: Reports: No Symptoms - Patient Data Vitals - Most Recent: Last Vital Signs Temp 97.7 F 10/05/16 00:00 Pulse 97 10/04/16 20:00 Resp 18 10/05/16 08:00 BP 126/85 10/05/16 09:33 Pulse Ox 98 10/05/16 08:00 Weight - Most Recent: 63.503 kg I&O - Last 24 hours: Intake & Output 10/04/16 10/05/16 10/05/16 22:59 06:59 14:59 Intake Total 800 Output Total 600 Balance 200 Lab Results - Last 24 hrs: Laboratory Results - last 24 hr 10/05/16 10/05/16 10/05/16 Range/Units 04:20 04:20 04:20 WBC 8.12 (4.0-11.0) K/uL RBC 3.55 L (4.30-5.90) M/uL Hgb 12.7 (12.0-16.0) g/dL Hct 35.8 L (36.0-46.0) % MCV 100.8 H (80.0-98.0) fL MCH 35.8 H (27.0-32.0) pg MCHC 35.5 (31.0-37.0) g/dL RDW Std Deviation 44.8 (28.0-62.0) fl RDW Coeff of Alverto 12 (11.0-15.0) % Plt Count 150 (150-400) K/uL MPV 9.90 (7.40-12.00) fL Neut % (Auto) 78.9 (48.0-80.0) % Lymph % (Auto) 12.8 L (16.0-40.0) % [place] % (Auto) 7.8 (0.0-15.0) % Eos % (Auto) 0.4 (0.0-7.0) % Baso % (Auto) 0.1 (0.0-1.5) % Neut # (Auto) 6.4 H (1.4-5.7) K/uL Lymph # (Auto) 1.0 (0.6-2.4) K/uL [place] # (Auto) 0.6 (0.0-0.8) K/uL Eos # (Auto) 0.0 (0.0-0.7) K/uL Baso # (Auto) 0.0 (0.0-0.1) K/uL Nucleated RBC % 0.0 /100WBC Nucleated RBCs # 0 K/uL Sodium 134 L (136-146) mmol/L Potassium 3.1 L (3.5-5.1) mmol/L Chloride 101 (98-110) mmol/L Carbon Dioxide 25 (21-31) mmol/L BUN 4 L (6.0-23.0) mg/dL Creatinine 0.6 (0.6-1.5) mg/dL Est Cr Clr Drug Dosing 114.21 mL/min Estimated GFR (MDRD) > 60.0 ml/min Glucose 85 (60-110) mg/dL Calcium 8.1 L (8.8-10.8) mg/dL Phosphorus 3.1 (2.4-4.7) mg/dL Magnesium 0.9 L (1.5-2.3) mEq/L Total Bilirubin 1.7 H (0.1-1.5) mg/dL AST 53 H (5-40) IU/L ALT 39 (8-54) IU/L Alkaline Phosphatase 96 (40-150) Total Protein 6.2 (6.0-8.0) g/dL Albumin 3.2 L (3.5-5.0) g/dL Globulin 3.0 (2.0-3.5) g/dL Albumin/Globulin Ratio 1.1 L (1.3-2.8) Triglycerides (10-190) mg/dL Cholesterol (131-240) mg/dL LDL Cholesterol, Calc (60-180) mg/dL VLDL Cholesterol (5-55) mg/dL HDL Cholesterol (40-80) mg/dL Cholesterol/HDL Ratio (3.3-6.0) Lipase 3111 H (7-80) U/L 10/05/16 Range/Units 04:20 WBC (4.0-11.0) K/uL RBC (4.30-5.90) M/uL Hgb (12.0-16.0) g/dL Hct (36.0-46.0) % MCV (80.0-98.0) fL MCH (27.0-32.0) pg MCHC (31.0-37.0) g/dL RDW Std Deviation (28.0-62.0) fl RDW Coeff of Alverto (11.0-15.0) % Plt Count (150-400) K/uL MPV (7.40-12.00) fL Neut % (Auto) (48.0-80.0) % Lymph % (Auto) (16.0-40.0) % [place] % (Auto) (0.0-15.0) % Eos % (Auto) (0.0-7.0) % Baso % (Auto) (0.0-1.5) % Neut # (Auto) (1.4-5.7) K/uL Lymph # (Auto) (0.6-2.4) K/uL [place] # (Auto) (0.0-0.8) K/uL Eos # (Auto) (0.0-0.7) K/uL Baso # (Auto) (0.0-0.1) K/uL Nucleated RBC % /100WBC Nucleated RBCs # K/uL Sodium (136-146) mmol/L Potassium (3.5-5.1) mmol/L Chloride (98-110) mmol/L Carbon Dioxide (21-31) mmol/L BUN (6.0-23.0) mg/dL Creatinine (0.6-1.5) mg/dL Est Cr Clr Drug Dosing mL/min Estimated GFR (MDRD) ml/min Glucose (60-110) mg/dL Calcium (8.8-10.8) mg/dL Phosphorus (2.4-4.7) mg/dL Magnesium (1.5-2.3) mEq/L Total Bilirubin (0.1-1.5) mg/dL AST (5-40) IU/L ALT (8-54) IU/L Alkaline Phosphatase (40-150) Total Protein (6.0-8.0) g/dL Albumin (3.5-5.0) g/dL Globulin (2.0-3.5) g/dL Albumin/Globulin Ratio (1.3-2.8) Triglycerides 40 (10-190) mg/dL Cholesterol 136 (131-240) mg/dL LDL Cholesterol, Calc 76 (60-180) mg/dL VLDL Cholesterol 8 (5-55) mg/dL HDL Cholesterol 52 (40-80) mg/dL Cholesterol/HDL Ratio 2.6 L (3.3-6.0) Lipase (7-80) U/L Med Orders - Current: Current Medications Acetaminophen (Tylenol) 650 mg PO Q4H PRN PRN Reason: Pain (Mild 1-3)/fever Sodium Chloride (Normal Saline) 1,000 mls @ 125 mls/hr IV ASDIRECTED [facility] Last Admin: 10/04/16 23:11 Dose: 125 mls/hr Pantoprazole Sodium 40 mg/ (Sodium Chloride) 10 mls @ 300 mls/hr IVPUSH Q12H [facility] Last Admin: 10/05/16 09:33 Dose: Not Given Potassium Chloride 40 meq/ (Sodium Chloride) 520 mls @ 130 mls/hr IV ONETIME ONE Stop: 10/05/16 12:22 Last Admin: 10/05/16 10:12 Dose: Not Given Lisinopril (Prinivil) 10 mg PO DAILY [facility] Last Admin: 10/05/16 09:33 Dose: Not Given Lorazepam (Ativan) 0 mg IV Q4H PRN; Protocol PRN Reason: Nausea/Vomiting Morphine Sulfate (Morphine) 4 mg IVPUSH Q2H PRN PRN Reason: Pain (severe 7-10) Last Admin: 10/05/16 00:06 Dose: 4 mg Ondansetron HCl (Zofran) 4 mg IVPUSH Q4H PRN PRN Reason: Nausea Last Admin: 10/04/16 23:55 Dose: 4 mg Sodium Chloride (Saline Flush) 10 ml FLUSH ASDIRECTED PRN PRN Reason: Keep Vein Open Sodium Chloride (Saline Flush) 2.5 ml FLUSH ASDIRECTED PRN PRN Reason: Keep Vein Open Temazepam (Restoril) 15 mg PO BEDTIME PRN PRN Reason: Sleep Discontinued Medications Hydromorphone HCl (Dilaudid) 1 mg IVPUSH ONETIME ONE Stop: 10/04/16 12:50 Last Admin: 10/04/16 12:58 Dose: 1 mg Sodium Chloride (Normal Saline) 1,000 mls @ 999 mls/hr IV STAT ONE Stop: 10/04/16 13:34 Last Admin: 10/04/16 12:53 Dose: 999 mls/hr Multivitamins/Minerals 10 ml/Thiamine HCl 100 mg/ Folic Acid 1 mg/ Sodium Chloride 1,011.2 mls @ 150 mls/hr IV DAILY ONE Stop: 10/04/16 21:44 Last Admin: 10/04/16 15:03 Dose: 150 mls/hr Magnesium Sulfate 4 gm/ Premix 100 mls @ 50 mls/hr IV ONETIME ONE Stop: 10/05/16 10:22 Last Admin: 10/05/16 09:28 Dose: 50 mls/hr Iopamidol (Isovue Multipack-370 (76%)) 100 ml IVPUSH ONETIME STA Stop: 10/04/16 13:51 Last Admin: 10/04/16 13:59 Dose: 100 ml Morphine Sulfate (Morphine) 4 mg IVPUSH Q2H PRN PRN Reason: Pain (severe 7-10) Last Admin: 10/04/16 15:19 Dose: 4 mg Ondansetron HCl (Zofran) 4 mg IVPUSH ONETIME ONE Stop: 10/04/16 12:39 Last Admin: 10/04/16 12:54 Dose: 4 mg Potassium Chloride (Klor-Con M20) 40 meq PO ONETIME ONE Stop: 10/05/16 09:36 Last Admin: 10/05/16 09:29 Dose: 40 meq - Exam General: Reports: Alert, Oriented, Cooperative, No Acute Distress Lungs: Reports: Clear to Auscultation, Normal Respiratory Effort Cardiovascular: Reports: Regular Rate, Regular Rhythm GI/Abdominal Exam: Normal Bowel Sounds, Soft, No Organomegaly, No Distention, No Abnormal Bruit, No Mass, Pelvis Stable, Tender (slight tenderness to epigastric region) Neurological: Reports: No New Focal Deficit Psy/Mental Status: Reports: Alert, Normal Affect, Normal Mood *Q Meaningful Use (DIS) - VTE *Q VTE Criteria *Q: - Stroke *Q Stroke Criteria *Q: - AMI *Q AMI Criteria *Q:
[2016-10-05 12:29] VITALS: BP 124/83
== END 2016-10-05 12:45 | disposition home or self-care (01) | DRG 282 ==
LOC: MW.ED 12:22 → MW.ICU 14:06 → MW.MS 21:50
PROVIDERS: ADMIT Family Medicine; ATTEND Family Medicine
DX: K85.20 Alcohol induced acute pancreatitis without necrosis or infection (principal); F10.10 Alcohol abuse, uncomplicated; I10 Essential (primary) hypertension; R74.8 Abnormal levels of other serum enzymes; F17.200 Nicotine dependence, unspecified, uncomplicated; Z88.0 Allergy status to penicillin; Z88.8 Allergy status to other drugs, medicaments and biological substances
CPT/HCPCS: 36415; 71010; 71010-26; 74177; 74177-26; 76705; 76705-26; 80053; 80061; 80305; 81001; 83690; 83735; 83880; 84100; 84484; 84703; 85025; 85610; 87040; 96361; 96374; 96375; 99283; 99285-25; A9270-GY; G0480; J1170; J2270; J2405; J3411; J3475; J7040; Q9967

== ENCOUNTER 2017-02-27 04:16 | Emergency (ER) | payer BC ==
[2017-02-27] MEDS ORDERED: Ketorolac 60 MG/2 ML SDV IM ONE (04:40)
--- NOTE | 2017-02-27 04:40 | EDM.PDOC ---
ED HPI GENERAL MEDICAL PROBLEM - General Chief Complaint: Lower Extremity Injury/Pain Stated Complaint: FALL Time Seen by Provider: 02/27/17 04:20 Source of Information: Reports: Patient History Limitations: Reports: No Limitations - History of Present Illness INITIAL COMMENTS - FREE TEXT/NARRATIVE: HISTORY AND PHYSICAL: History of present illness: 37-year-old female presented emergency room by EMS from [place] with right knee pain after fall. Patient states that while walking down stairs at her house at approximately 11pm , carrying balloons and a bouquet she missed placed the last step and fell, falling directly on her right knee. She is unable to remember if she was twisting or what actually hit first other than the fact that she did not hit her head or sustain any other injuries. She felt excruciating pain immediately and saw swelling to the area just below her knee. She had to have her help her up.She continued to have pain so eventually decided to call EMS to be evaluated in the [place] [facility]. She has had surgery ACL allograft replacement to that knee as well as meniscal repair as per patient. She does admit to having 2 beers the previous evening while at her birthday alliance party. She denies any syncope prior to or after the event, chest pain, palpitations, shortness breath, or focal neurologic deficits. Review of systems: As per history of present illness and below otherwise all systems reviewed and negative. Past medical history: As per history of present illness and as reviewed below otherwise noncontributory. Surgical history: As per history of present illness and as reviewed below otherwise noncontributory. Social history: No reported history of drug or alcohol abuse. Family history: As per history of present illness and as reviewed below otherwise noncontributory. Physical exam: HEENT: Atraumatic, normocephalic, pupils reactive, negative for conjunctival pallor or scleral icterus, mucous membranes moist, throat clear, neck supple, nontender, trachea midline. Lungs: Clear to auscultation, breath sounds equal bilaterally, chest nontender. Heart: S1S2, regular, negative for clicks, rubs, or JVD. Abdomen: Soft, nondistended, nontender. Negative for masses or hepatosplenomegaly. Negative for costovertebral tenderness. Pelvis: Stable nontender. Genitourinary: Deferred. Rectal: Deferred. Extremities: There is visual deformity near the tibial tuberosity of the right knee. Pulses equal bilaterally with no loss of sensation neurovascular intact. She is tender to palpation near the tibial tuberosity and distal approximately 10 cm, tibia. Patella is freely movable and there is no pain in the back of the knee. Ankle without deformity neurovascular intact no pain. negative for cords or calf pain. Neurovascular unremarkable. Neuro: Awake, alert, oriented. Cranial nerves II through XII unremarkable. Cerebellum unremarkable. Motor and sensory unremarkable throughout. Exam nonfocal. Diagnostics: Right knee x-ray- Right tibia fib [id number] lucency extending from the proximal screw to the lower bone staple along the tibia suggestive of an acute fracture in this region. Additional lucency along the proximal fibular metaphysis suggestive of a nondisplaced fracture. Therapeutics: Toradol 60 mg IM Ativan 1 mg PO x1 Percocet 5-325 Impression: As above fracture noted within the tibia. Did call Dr. Etienne in [place] orthopedic surgeon. He recommended ice, elevation, and immobilization. He will see the patient on or Sunday at patient's discretion. They are to call him at [phone]. This was communicated to the patient. She will discharge her with a prescription for Percocet 5-325 by mouth every 6 hours #12. All information was communicated to the patient and she is in full understanding. Definitive disposition and diagnosis as appropriate pending reevaluation and review of above. right knee Pain Score (Numeric/FACES): 10 - Related Data Allergies Allergy/AdvReac Type Severity Reaction Status Date / Time amoxicillin Allergy Hives Verified 02/27/17 04:25 Penicillins Allergy Hives Verified 02/27/17 04:25 berries Allergy Hives Uncoded 02/27/17 04:25 Home Meds: Home Meds Lisinopril 10 mg PO DAILY 05/08/16 [History] Acetaminophen/oxyCODONE [Percocet 325-5 MG] 1 each PO Q6H PRN #12 tab 02/27/17 [ Rx] Past Medical History - Past Health History Medical/Surgical History: Denies Medical/Surgical History Cardiovascular History: Reports: Hypertension Oncologic (Cancer) History: Reports: None - Past Surgical History Musculoskeletal Surgical History: Reports: Other (See Below) Social & Family History - Family History Family Medical History: Noncontributory - Tobacco Use Smoking Status *Q: Current Every Day Smoker Years of Tobacco use: 20 Packs/Tins Daily: 0.5 Second Hand Smoke Exposure: Yes - Caffeine Use Caffeine Use: Reports: Coffee, Soda - Alcohol Use Days Per Week of Alcohol Use: 7 Number of Drinks Per Day: 5 Total Drinks Per Week: 35 - Recreational Drug Use Recreational Drug Use: No Review of Systems - Review of Systems Review Of Systems: See Below ED EXAM, GENERAL - Physical Exam Exam: See Below Course - Vital Signs Last Recorded V/S: Last Vital Signs Temp 97.2 F 02/27/17 04:26 Pulse 87 02/27/17 04:26 Resp 18 02/27/17 04:26 BP 137/107 H 02/27/17 04:26 Pulse Ox 98 02/27/17 04:26 - Orders/Labs/Meds Orders: Active Orders 24 hr Category Date Time Status Tibia Fibula Rt [CR] Stat Exams 02/27/17 04:29 Taken Acetaminophen/oxyCODONE [Percocet 325-5 MG] Med 02/27/17 06:28 Once 1 tab PO ONETIME ONE Medication Orders Oxycodone/Acetaminophen (Percocet 325-5 Mg) 1 tab PO ONETIME ONE Stop: 02/27/17 06:29 Labs: Laboratory Tests 02/27/17 Range/Units 04:44 HCG, Qual NEGATIVE (NEG) Meds: Medications Generic Name Dose Route Start Last Admin Trade Name Freq PRN Reason Stop Dose Admin Oxycodone/Acetaminophen 1 tab 02/27/17 06:28 Percocet 325-5 Mg PO 02/27/17 06:29 ONETIME ONE Discontinued Medications Generic Name Dose Route Start Last Admin Trade Name Freq PRN Reason Stop Dose Admin Ketorolac Tromethamine 60 mg 02/27/17 04:40 02/27/17 04:45 Toradol IM 02/27/17 04:41 60 mg ONETIME ONE Administration Lorazepam 1 mg 02/27/17 05:46 02/27/17 05:55 Ativan PO 02/27/17 05:47 1 mg ONETIME ONE Administration Departure - Departure Time of Disposition: 06:32 Disposition: Home, Self-Care 01 Condition: Good Clinical Impression: Closed right tibial fracture - Discharge Information Prescriptions: Acetaminophen/oxyCODONE [Percocet 325-5 MG] 1 each PO Q6H PRN #12 tab PRN Reason: Pain Referrals: Shantell Telles [employer] MECH[employer]ISM ADJUSTER [Primary Care Provider] - Forms: ED Department Discharge Additional Instructions: Follow-up with Dr. Etienne orthopedic surgeon [facility] phone as instructed address and phone number have been printed for you. Take pain medication as prescribed. Return to emergency room if symptoms worsen before you are able see Dr. Etienne. The following information is given to patients seen in the emergency department who are being discharged to home. This information is to outline your options for follow-up care. We provide all patients seen in our emergency department with a follow-up referral. The need for follow-up, as well as the timing and circumstances, are variable depending upon the specifics of your emergency department visit. If you don't have a primary care physician on staff, we will provide you with a referral. We always advise you to contact your personal physician following an emergency department visit to inform them of the circumstance of the visit and for follow-up with them and/or the need for any referrals to a consulting specialist. The emergency department will also refer you to a specialist when appropriate. This referral assures that you have the opportunity for follow-up care with a specialist. All of these measure are taken in an effort to provide you with optimal care, which includes your follow-up. Under all circumstances we always encourage you to contact your private physician who remains a resource for coordinating your care. When calling for follow-up care, please make the office aware that this follow-up is from your recent emergency room visit. If for any reason you are refused follow-up, please contact the [facility] Emergency Department at and asked to speak to the emergency department charge nurse. - My Orders Last 24 Hours: My Active Orders 02/27/17 04:29 Tibia Fibula Rt [CR] Stat 02/27/17 06:28 Acetaminophen/oxyCODONE [Percocet 325-5 MG] 1 tab PO ONETIME ONE - Assessment/Plan Last 24 Hours: My Active Orders 02/27/17 04:29 Tibia Fibula Rt [CR] Stat 02/27/17 06:28 Acetaminophen/oxyCODONE [Percocet 325-5 MG] 1 tab PO ONETIME ONE
[2017-02-27] MEDS ORDERED: LORazepam 1 MG Tab PO ONE (05:46)
[2017-02-27] MEDS ORDERED: Acetaminophen/oxyCODONE 325-5 MG Tab PO ONE (06:28)
[2017-02-27 13:56] VITALS: BP 123/75
--- NOTE | 2017-02-27 16:48 | CR ---
EXAM DATE: 02/27/17 PATIENT'S AGE: 37 Patient: ROBERTH DE GUZMAN Facility: [place], [place] Site . Site : 1980 Study: XRay Extremity Right [id number]/16/2018 5:16:46 AM Ordering Physician: Ray Aly Final Report: INDICATION: leg injury TECHNIQUE: Right tibia/ fibula radiographs could overlying artifact on lateral projection degrades evaluation. COMPARISON: None FINDINGS: Bones: Linear lucency extending from the proximal screw to the lower bone staple along the tibia suggestive of an acute fracture in this region. Additional lucency along the proximal fibular metaphysis suggestive of a nondisplaced fracture. Prior ACL repair changes. Joint spaces: Unremarkable. Soft tissues: Unremarkable. IMPRESSION: Linear lucency extending from the proximal screw to the lower bone staple along the tibia suggestive of an acute fracture in this region. Additional lucency along the proximal fibular metaphysis suggestive of a nondisplaced fracture Dictated by Yadiel Mejias MD @ 02/27/2017 5:47:17 AM Dictated by: Yadiel Mejias MD @ 02/27/2017 05:47:22 (Electronic Signature) Report Signed by Proxy. ELIZABETH
== END 2017-02-27 10:08 | disposition home or self-care (01) ==
LOC: MW.ED 04:16
DX: S82.301A Unspecified fracture of lower end of right tibia, initial encounter for closed fracture (principal); I10 Essential (primary) hypertension; F17.210 Nicotine dependence, cigarettes, uncomplicated; Z88.1 Allergy status to other antibiotic agents; Z88.0 Allergy status to penicillin; Z79.899 Other long term (current) drug therapy; W10.9XXA Fall (on) (from) unspecified stairs and steps, initial encounter
CPT/HCPCS: 36415; 73590; 84703; 96372; 99284; A9270; J1885

== ENCOUNTER 2017-03-10 10:32 | Observation (INO) | payer BC ==
--- NOTE | 2017-03-10 10:55 | EDM.PDOC ---
ED HPI GENERAL MEDICAL PROBLEM - General Chief Complaint: Abdominal Pain Stated Complaint: AMB Time Seen by Provider: 03/10/17 10:35 Source of Information: Reports: Patient, EMS History Limitations: Reports: No Limitations - History of Present Illness INITIAL COMMENTS - FREE TEXT/NARRATIVE: HISTORY AND PHYSICAL: History of present illness: Patient is a 37-year-old female who presents to the emergency room by EMS with complaints of left upper abdominal/rib pain that radiates into the left back. Patient states that over the last couple days she has had pain to her left lower chest wall that radiates into the back when she takes in a deep breath, coughing or moving. Two weeks ago she did have a fracture to her right lower extremity which is in a splint, therefore her mobility has been decreased. She states she has been using oxycodone routinely for her pain management. She denies any constipation, last bowel movement yesterday- normal. Denies any dysuria or frequency. Denies any nausea, vomiting, chest pain or shortness of breath. Review of systems: As per history of present illness and below otherwise all systems reviewed and negative. Past medical history: As per history of present illness and as reviewed below otherwise noncontributory. Surgical history: As per history of present illness and as reviewed below otherwise noncontributory. Social history: No reported history of drug or alcohol abuse. Family history: As per history of present illness and as reviewed below otherwise noncontributory. Physical exam: Gen.: Well-developed and well-nourished 37-year-old female. Alert and oriented. Nontoxic appearing and in no acute distress. HEENT: Atraumatic, normocephalic, pupils reactive, negative for conjunctival pallor or scleral icterus, mucous membranes moist, throat clear, neck supple, nontender, trachea midline. Lungs: Clear to auscultation, breath sounds equal bilaterally, chest nontender. Heart: S1S2, regular rate and rhythm Abdomen: Soft, nondistended, nontender. Negative for masses or hepatosplenomegaly. Negative for costovertebral tenderness. Pelvis: Stable nontender. Genitourinary: Deferred. Rectal: Deferred. Extremities: Atraumatic, wearing a long leg immobilizer to the right lower extremity (due to previous fracture) good CMS and strong pedal pulses. She is negative for cords or calf pain. Neurovascular unremarkable. Neuro: Awake, alert, oriented. Cranial nerves II through XII unremarkable. Cerebellum unremarkable. Motor and sensory unremarkable throughout. Exam nonfocal. Under evaluating the patient the patient localizes her pain to the left lower chest wall, she states it "feels like I have a broken rib". Abdomen is soft, nontender and does not complain of pain in any of the 4 quadrants. Chest x-ray shows a PE on the right and likely the left lower lobe as well. There is bilateral atelectasis. Vital signs are stable. Dr. Bell was consulted on this case. Agreeable to admit this patient for observation. Diagnostics: CBC, CMP, UA, chest x-ray Therapeutics: IV fluid, Toradol, Lovenox Impression: #1 Left chest wall pain #2 Bilateral PE Plan: Observation to Med/Surg with telemetry Definitive disposition and diagnosis as appropriate pending reevaluation and review of above. Duration: Day(s): Location: Reports: Chest ribs Pain Score (Numeric/FACES): 8 - Related Data Allergies Allergy/AdvReac Type Severity Reaction Status Date / Time amoxicillin Allergy Hives Verified 03/10/17 10:36 Penicillins Allergy Hives Verified 03/10/17 10:36 berries Allergy Hives Uncoded 03/10/17 10:36 Home Meds: Home Meds Lisinopril 10 mg PO DAILY 05/08/16 [History] Acetaminophen/oxyCODONE [Percocet 325-5 MG] 1 each PO Q6H PRN #12 tab 02/27/17 [ Rx] Apixaban [Eliquis] 5 mg PO BID #67 tablet 03/11/17 [Rx] Past Medical History - Past Health History Medical/Surgical History: Denies Medical/Surgical History HEENT History: Reports: None Cardiovascular History: Reports: Hypertension Respiratory History: Reports: None Gastrointestinal History: Reports: None Genitourinary History: Reports: None Musculoskeletal History: Reports: Other (See Below) Other Musculoskeletal History: ACL Neurological History: Reports: None Psychiatric History: Reports: None Endocrine/Metabolic History: Reports: None Hematologic History: Reports: None Immunologic History: Reports: None Oncologic (Cancer) History: Reports: None Dermatologic History: Reports: None - Infectious Disease History Infectious Disease History: Reports: None - Past Surgical History Musculoskeletal Surgical History: Reports: Other (See Below) Social & Family History - Family History Family Medical History: Noncontributory - Tobacco Use Smoking Status *Q: Current Every Day Smoker Years of Tobacco use: 18 Packs/Tins Daily: 0.5 Second Hand Smoke Exposure: Yes - Caffeine Use Caffeine Use: Reports: Coffee, Soda - Alcohol Use Days Per Week of Alcohol Use: 4 Number of Drinks Per Day: 2 Total Drinks Per Week: 8 - Recreational Drug Use Recreational Drug Use: No ED ROS GENERAL - Review of Systems Review Of Systems: ROS reveals no pertinent complaints other than HPI. ED EXAM, GENERAL - Physical Exam Exam: See Below (See dictation) Course - Vital Signs Last Recorded V/S: Last Vital Signs Temp 98.2 F 03/11/17 12:00 Pulse 75 03/11/17 12:00 Resp 18 03/11/17 12:00 BP 126/84 03/11/17 12:00 Pulse Ox 98 03/11/17 12:00 - Orders/Labs/Meds Labs: Laboratory Tests 03/10/17 03/10/17 03/10/17 Range/Units 10:51 10:51 10:51 WBC 8.04 (4.0-11.0) K/uL RBC 3.84 L (4.30-5.90) M/uL Hgb 13.9 (12.0-16.0) g/dL Hct 39.8 (36.0-46.0) % MCV 103.6 H (80.0-98.0) fL MCH 36.2 H (27.0-32.0) pg MCHC 34.9 (31.0-37.0) g/dL RDW Std Deviation 48.5 (28.0-62.0) fl RDW Coeff of [place] 13 (11.0-15.0) % Plt Count 258 (150-400) K/uL MPV 9.20 (7.40-12.00) fL Neut % (Auto) 79.7 (48.0-80.0) % Lymph % (Auto) 10.7 L (16.0-40.0) % [place] % (Auto) 8.8 (0.0-15.0) % Eos % (Auto) 0.7 (0.0-7.0) % Baso % (Auto) 0.1 (0.0-1.5) % Neut # (Auto) 6.4 H (1.4-5.7) K/uL Lymph # (Auto) 0.9 (0.6-2.4) K/uL [place] # (Auto) 0.7 (0.0-0.8) K/uL Eos # (Auto) 0.1 (0.0-0.7) K/uL Baso # (Auto) 0.0 (0.0-0.1) K/uL Nucleated RBC % 0.0 /100WBC Nucleated RBCs # 0 K/uL D-Dimer, Quantitative 4.16 H (0.0-0.52) mg/LFEU Sodium 138 (136-146) mmol/L Potassium 4.0 (3.5-5.1) mmol/L Chloride 102 (98-110) mmol/L Carbon Dioxide 22 (21-31) mmol/L BUN 6 (6.0-23.0) mg/dL Creatinine 0.7 (0.6-1.5) mg/dL Est Cr Clr Drug Dosing 97.09 mL/min Estimated GFR (MDRD) > 60.0 ml/min Glucose 80 (60-110) mg/dL Calcium 9.9 (8.8-10.8) mg/dL Total Bilirubin 1.1 (0.1-1.5) mg/dL AST 58 H (5-40) IU/L ALT 43 (8-54) IU/L Alkaline Phosphatase 105 (40-150) Total Protein 8.1 H (6.0-8.0) g/dL Albumin 4.1 (3.5-5.0) g/dL Globulin 4.0 H (2.0-3.5) g/dL Albumin/Globulin Ratio 1.0 L (1.3-2.8) Amylase 33 (10-90) U/L Lipase < 9 (7-80) U/L Urine Color Urine Appearance Urine pH (5.0-8.0) Ur Specific [place] (1.001-1.035) Urine Protein (NEGATIVE) mg/dL Urine Glucose (UA) (NEGATIVE) mg/dL Urine Ketones (NEGATIVE) mg/dL Urine Occult Blood (NEGATIVE) Urine Nitrite (NEGATIVE) Urine Bilirubin (NEGATIVE) Urine Ictotest Urine Urobilinogen (<2.0) EU/dL Ur Leukocyte Esterase (NEGATIVE) Urine RBC (0-2/HPF) Urine WBC (0-5/HPF) Ur Epithelial Cells (NONE-FEW) Urine Bacteria (NEGATIVE) Urine Mucus (NONE-MOD) 03/10/17 Range/Units 11:40 WBC (4.0-11.0) K/uL RBC (4.30-5.90) M/uL Hgb (12.0-16.0) g/dL Hct (36.0-46.0) % MCV (80.0-98.0) fL MCH (27.0-32.0) pg MCHC (31.0-37.0) g/dL RDW Std Deviation (28.0-62.0) fl RDW Coeff of [place] (11.0-15.0) % Plt Count (150-400) K/uL MPV (7.40-12.00) fL Neut % (Auto) (48.0-80.0) % Lymph % (Auto) (16.0-40.0) % [place] % (Auto) (0.0-15.0) % Eos % (Auto) (0.0-7.0) % Baso % (Auto) (0.0-1.5) % Neut # (Auto) (1.4-5.7) K/uL Lymph # (Auto) (0.6-2.4) K/uL [place] # (Auto) (0.0-0.8) K/uL Eos # (Auto) (0.0-0.7) K/uL Baso # (Auto) (0.0-0.1) K/uL Nucleated RBC % /100WBC Nucleated RBCs # K/uL D-Dimer, Quantitative (0.0-0.52) mg/LFEU Sodium (136-146) mmol/L Potassium (3.5-5.1) mmol/L Chloride (98-110) mmol/L Carbon Dioxide (21-31) mmol/L BUN (6.0-23.0) mg/dL Creatinine (0.6-1.5) mg/dL Est Cr Clr Drug Dosing mL/min Estimated GFR (MDRD) ml/min Glucose (60-110) mg/dL Calcium (8.8-10.8) mg/dL Total Bilirubin (0.1-1.5) mg/dL AST (5-40) IU/L ALT (8-54) IU/L Alkaline Phosphatase (40-150) Total Protein (6.0-8.0) g/dL Albumin (3.5-5.0) g/dL Globulin (2.0-3.5) g/dL Albumin/Globulin Ratio (1.3-2.8) Amylase (10-90) U/L Lipase (7-80) U/L Urine Color YELLOW Urine Appearance CLEAR Urine pH 5.5 (5.0-8.0) Ur Specific [place] 1.020 (1.001-1.035) Urine Protein NEGATIVE (NEGATIVE) mg/dL Urine Glucose (UA) NEGATIVE (NEGATIVE) mg/dL Urine Ketones 15 H (NEGATIVE) mg/dL Urine Occult Blood SMALL H (NEGATIVE) Urine Nitrite NEGATIVE (NEGATIVE) Urine Bilirubin SMALL H (NEGATIVE) Urine Ictotest NEGATIVE Urine Urobilinogen 0.2 (<2.0) EU/dL Ur Leukocyte Esterase NEGATIVE (NEGATIVE) Urine RBC 0-1 (0-2/HPF) Urine WBC 0-3 (0-5/HPF) Ur Epithelial Cells FEW (NONE-FEW) Urine Bacteria FEW (NEGATIVE) Urine Mucus LIGHT (NONE-MOD) Meds: Medications Discontinued Medications Generic Name Dose Route Start Last Admin Trade Name Freq PRN Reason Stop Dose Admin Acetaminophen 650 mg 03/10/17 15:59 Tylenol PO Q4H PRN Pain (Mild 1-3)/fever Hydrocodone Bitart/Acetaminophen 1 tab 03/10/17 15:59 03/11/17 11:58 [place] 325-5 Mg PO 1 tab Q4H PRN Administration Pain (moderate 4-6) Enoxaparin Sodium 60 mg 03/10/17 13:46 03/10/17 14:31 Lovenox SUBCUT 03/10/17 13:47 60 mg ONETIME ONE Administration Enoxaparin Sodium 70 mg 03/11/17 12:00 03/11/17 12:03 Lovenox SUBCUT 70 mg Q24H RAH Administration Iopamidol 50 ml 03/10/17 12:44 03/10/17 12:44 Isovue Multipack-370 (76%) IVPUSH 03/10/17 12:45 50 ml ONETIME ONE Administration Ketorolac Tromethamine 30 mg 03/10/17 11:53 03/10/17 11:56 Toradol IVPUSH 03/10/17 11:54 30 mg ONETIME ONE Administration Morphine Sulfate 2 mg 03/10/17 15:20 03/10/17 15:39 Morphine IVPUSH 03/10/17 15:21 2 mg ONETIME ONE Administration Morphine Sulfate 2 mg 03/10/17 15:59 03/11/17 06:37 Morphine IVPUSH 03/11/17 16:01 2 mg Q2H PRN Administration Pain (severe 7-10) Ondansetron HCl 4 mg 03/10/17 15:59 Zofran Odt PO Q4H PRN nausea, able to take PO Ondansetron HCl 4 mg 03/10/17 15:59 Zofran IVPUSH Q4H PRN Nausea Temazepam 15 mg 03/10/17 15:59 03/10/17 23:46 Restoril PO 15 mg BEDTIME PRN Administration Sleep Warfarin Sodium 10 mg 03/10/17 16:15 03/10/17 16:20 Coumadin PO 10 mg DAILY@1400 RAH Administration Departure - Departure Time of Disposition: 13:49 Disposition: Refer to Observation Clinical Impression: Pulmonary embolism Qualifiers: Pulmonary embolism type: other Chronicity: unspecified Acute cor pulmonale presence: without acute cor pulmonale Qualified Code(s): I26.99 - Other pulmonary embolism without acute cor pulmonale - Discharge Information
[2017-03-10 11:30] LABS: CHLORIDE,CL 102 mmol/L (98-110); SODIUM,NA 138 mmol/L (136-146)
[2017-03-10] MEDS ORDERED: Ketorolac 30 MG/ML SDV IVPUSH ONE (11:53)
[2017-03-10] MEDS ORDERED: Iopamidol 755 MG/ML 200 ML Multipack Bottle IVPUSH ONE (12:44)
[2017-03-10] MEDS ORDERED: Enoxaparin 60 MG/0.6 ML Syringe SUBCUT ONE (13:46)
--- NOTE | 2017-03-10 15:03 | PCM.HP ---
H&P History of Present Illness - General Date of Service: 03/10/17 Admit Problem/Dx: Admission Diagnosis/Problem Admission Diagnosis/Problem Pulmonary embolism Source of Information: Patient History Limitations: Reports: No Limitations - History of Present Illness Initial Comments - Free Text/Narative: 37-year-old female presented to emergency room with chief complaint of left sided rib pain 2 days with past medical history of hypertension and recent right lower extremity fracture. Patient states that for the past several days she has had left lower chest pain that radiates to the back with deep breaths or coughing. She states that this morning she woke up around 3 AM with severe pain that began to worsen which she describes as "ribs pinching". She did have significant shortness of breath so called EMS to transport her to [place] emergency room. She recently had a fracture to her right lower extremity which is currently still imobilized in a splint. Secondary to this she has had decreased mobility. She has been using oxycodone routinely for her pain. She denies any fever, chills, nausea, vomiting , chest pain, palpitations, current shortness of breath, syncopal episodes, or focal neurologic deficits. She does have pain in her left lower extremity. In the emergency department: CBC, CMP, amylase, lipase, UA, and chest x-ray were unremarkable. She did have an elevated d-dimer 4.16. CTA revealed pulmonary emboli best appreciated on the right. Pulmonary emboli within the left lower lobe was suspected. There was bilateral lower lobe infiltrates or atelectasis. Trace pleural fluid or pleural thickening. Vital signs were within normal limits. She was given Lovenox 60 mg subcutaneous 1 and ketorolac 30 mg IV. Patient was admitted for bilateral pulmonary emboli. ribs Pain Score (Numeric/FACES): 8 - Related Data Allergies/Adverse Reactions: Allergies Allergy/AdvReac Type Severity Reaction Status Date / Time amoxicillin Allergy Hives Verified 03/10/17 10:36 Penicillins Allergy Hives Verified 03/10/17 10:36 berries Allergy Hives Uncoded 03/10/17 10:36 Home Medications: Home Meds Lisinopril 10 mg PO DAILY 05/08/16 [History] Acetaminophen/oxyCODONE [Percocet 325-5 MG] 1 each PO Q6H PRN #12 tab 02/27/17 [ Rx] Past Medical History - Past Health History Medical/Surgical History: Denies Medical/Surgical History HEENT History: Reports: None Cardiovascular History: Reports: Hypertension Respiratory History: Reports: None Gastrointestinal History: Reports: None Genitourinary History: Reports: None Musculoskeletal History: Reports: Other (See Below) Other Musculoskeletal History: ACL Neurological History: Reports: None Psychiatric History: Reports: None Endocrine/Metabolic History: Reports: None Hematologic History: Reports: None Immunologic History: Reports: None Oncologic (Cancer) History: Reports: None Dermatologic History: Reports: None - Infectious Disease History Infectious Disease History: Reports: None - Past Surgical History Musculoskeletal Surgical History: Reports: Other (See Below) Social & Family History - Family History Family Medical History: Noncontributory - Tobacco Use Smoking Status *Q: Current Every Day Smoker Years of Tobacco use: 18 Packs/Tins Daily: 0.5 Second Hand Smoke Exposure: Yes - Caffeine Use Caffeine Use: Reports: Coffee, Soda - Alcohol Use Days Per Week of Alcohol Use: 4 Number of Drinks Per Day: 2 Total Drinks Per Week: 8 - Recreational Drug Use Recreational Drug Use: No H&P Review of Systems - Review of Systems: Review Of Systems: See Below General: Denies: Fever, Chills, Malaise, Weakness HEENT: Denies: Headaches, Sore Throat Pulmonary: Reports: Shortness of Breath, Pleuritic Chest Pain, Cough. Denies: Wheezing, Sputum Cardiovascular: Denies: Chest Pain, Palpitations, Edema Gastrointestinal: Denies: Abdominal Pain, Black Stool, Bloody Stool, Nausea, Vomiting Genitourinary: Denies: Dysuria, Hematuria Musculoskeletal: Reports: Leg Pain. Denies: Neck Pain Skin: Denies: Cyanosis Psychiatric: Denies: Confusion Neurological: Denies: Confusion, Dizziness, Headache Hematologic/Lymphatic: Denies: Anemia Exam - Exam Exam: See Below - Vital Signs Vital Signs: Last Vital Signs Temp 98.2 F 03/10/17 10:37 Pulse 85 03/10/17 12:04 Resp 18 03/10/17 12:04 BP 122/80 03/10/17 12:04 Pulse Ox 98 03/10/17 12:04 Weight: 68.039 kg - Exam Quality Assessment: DVT Prophylaxis General: Alert, Oriented, Cooperative HEENT: Conjunctiva Clear, EACs Clear, EOMI, Hearing Intact, Mucosa Moist & [place] , Nares Patent, Normal Nasal Septum, Posterior Pharynx Clear, PERRLA Neck: Supple, Trachea Midline, 2 Lungs: Clear to Auscultation, Normal Respiratory Effort Cardiovascular: Regular Rate, Regular Rhythm GI/Abdominal Exam: Normal Bowel Sounds, Soft, Non-Tender, No Organomegaly, No Distention (Female) Exam: Deferred Rectal (Female) Exam: Deferred Back Exam: Normal Inspection, Full Range of Motion, NT Extremities: Normal Inspection, Non-Tender, No Pedal Edema, Normal Capillary Refill Peripheral Pulses: 2+: Radial (L), Radial (R), Posterior Tibial (L), Posterior Tibial (R), Dorsalis Pedis (L), Dorsalis Pedis (R) Skin: Warm, Dry, Intact Neurological: Cranial Nerves Intact Neuro Extensive - Mental Status: Alert, Oriented x3, Normal Mood/Affect, Normal Cognition Neuro Extensive - Motor, Sensory, Reflexes: CN II-XII Intact Psychiatric: Alert, Normal Affect, Normal Mood - Patient Data Result Diagrams: 03/10/17 10:51 03/10/17 10:51 *Q Meaningful Use (ADM) - VTE *Q VTE Criteria *Q: - Stroke *Q Stroke Criteria *Q: - AMI *Q AMI Criteria *Q: - Problem List (1) Fracture of tibia, right, closed SNOMED Code(s): 014861866 ICD Code: S82.201A - UNSP FRACTURE OF SHAFT OF RIGHT TIBIA, INIT FOR CLOS FX Status: Chronic Priority: High Current Visit: Yes Qualifiers: Encounter type: subsequent encounter Tibia location: shaft Fracture morphology: other fracture Fracture healing: with routine healing Qualified Code(s): S82.291D - Other fracture of shaft of right tibia, subsequent encounter for closed fracture with routine healing (2) Pulmonary embolism SNOMED Code(s): 76287223 ICD Code: I26.99 - OTHER PULMONARY EMBOLISM WITHOUT ACUTE COR PULMONALE Status: Acute Priority: High Current Visit: Yes Qualifiers: Pulmonary embolism type: other Chronicity: unspecified Acute cor pulmonale presence: without acute cor pulmonale Qualified Code(s): I26.99 - Other pulmonary embolism without acute cor pulmonale (3) HTN (hypertension) SNOMED Code(s): 98405125 ICD Code: I10 - ESSENTIAL (PRIMARY) HYPERTENSION Status: Chronic Priority : Medium Current Visit: Yes Qualifiers: Hypertension type: essential hypertension Qualified Code(s): I10 - Essential (primary) hypertension Problem List Initiated/Reviewed/Updated: Yes Assessment/Plan Comment:: 37-year-old female admitted 03/10/17 for bilateral pulmonary emboli with past medical history of hypertension and recent right lower extremity fracture. Bilateral pulmonary emboli: Patient will be placed on continuous oxygen saturation. She will be given Lovenox and started on 10 mg of warfarin with bridging. Currently vital signs are stable. We'll continue to monitor closely. Hypertension: Currently controlled will resume home medications. Right lower extremity fracture: Currently in splint and immobilized as per orthopedic directions. We'll continue this treatment. VTE: On Lovenox and warfarin, SCD to left lower extemity Dispo: 1-2 days.
[2017-03-10] MEDS ORDERED: Morphine 2 MG/ML Syringe IVPUSH ONE (15:20)
[2017-03-10] MEDS ORDERED: Temazepam 15 MG Cap PO PRN (15:59)
[2017-03-10] MEDS ORDERED: Acetaminophen 325 MG Tab PO PRN (15:59)
[2017-03-10] MEDS ORDERED: Ondansetron 4 MG/2 ML SDV IVPUSH PRN (15:59)
[2017-03-10] MEDS ORDERED: Ondansetron 4 MG Tab.DIS PO PRN (15:59)
[2017-03-10] MEDS ORDERED: Warfarin 10 MG Tab PO SCH (16:15)
[2017-03-10] MEDS: Acetaminophen/HYDROcodone 325-5 MG Tab PO PRN (18:49)
[2017-03-10] MEDS: Morphine 2 MG/ML Syringe IVPUSH PRN ×2 (20:41→23:47)
[2017-03-11 06:37] LABS: CHLORIDE,CL 102 mmol/L (98-110); SODIUM,NA 137 mmol/L (136-146)
[2017-03-11] MEDS: Morphine 2 MG/ML Syringe IVPUSH PRN (06:37)
[2017-03-11] MEDS: Acetaminophen/HYDROcodone 325-5 MG Tab PO PRN (11:58)
[2017-03-11] MEDS ORDERED: Enoxaparin 100 MG/1 ML Syringe SUBCUT SCH (12:00)
[2017-03-11 12:47] VITALS: BP 126/84
--- NOTE | 2017-03-11 13:34 | PCM.DCSUM1 ---
Discharge Summary - Discharge Data Discharge Date: 03/11/17 Discharge Disposition: Home, Self-Care 01 Condition: Good - Patient Summary/Data Hospital Course: 37 yo female admitted for PE. She presented with pleuritic chest pain. She has a history of recent right lower extremity fracture. CT angio reported pulmonary emboli best appreciated on the right. Pulmonary emboli with in the left lower lobe was suspect. She was observed overnight and this morning her symptoms have resolved. She is requesting discharge home. She was discharged on Eliquis and will follow up with Brett Roberts at [facility] tomorrow. - Patient Instructions Diet: Regular Diet as Tolerated - Discharge Plan Prescriptions/Med Rec: Apixaban [Eliquis] 5 mg PO BID #67 tablet Home Medications: Home Meds Lisinopril 10 mg PO DAILY 05/08/16 [History] Acetaminophen/oxyCODONE [Percocet 325-5 MG] 1 each PO Q6H PRN #12 tab 02/27/17 [ Rx] Apixaban [Eliquis] 5 mg PO BID #67 tablet 03/11/17 [Rx] Patient Handouts: Tibial Fracture, Adult, [id number], Pulmonary Embolism Referrals: [facility] [Outside] - Patient Data Vitals - Most Recent: Last Vital Signs Temp 36.8 C 03/11/17 12:00 Pulse 75 03/11/17 12:00 Resp 18 03/11/17 12:00 BP 126/84 03/11/17 12:00 Pulse Ox 98 03/11/17 12:00 Weight - Most Recent: 68.039 kg I&O - Last 24 hours: Intake & Output 03/10/17 03/11/17 03/11/17 22:59 06:59 14:59 Intake Total 300 200 Output Total 200 500 Balance 100 -300 Lab Results - Last 24 hrs: Laboratory Results - last 24 hr 03/11/17 03/11/17 03/11/17 Range/Units 06:00 06:00 06:00 WBC 5.44 (4.0-11.0) K/uL RBC 3.58 L (4.30-5.90) M/uL Hgb 12.8 (12.0-16.0) g/dL Hct 36.7 (36.0-46.0) % MCV 102.5 H (80.0-98.0) fL MCH 35.8 H (27.0-32.0) pg MCHC 34.9 (31.0-37.0) g/dL RDW Std Deviation 47.2 (28.0-62.0) fl RDW Coeff of Alverto 13 (11.0-15.0) % Plt Count 240 (150-400) K/uL MPV 9.10 (7.40-12.00) fL Neut % (Auto) 56.7 (48.0-80.0) % Lymph % (Auto) 28.7 (16.0-40.0) % Cameron % (Auto) 11.8 (0.0-15.0) % Eos % (Auto) 2.4 (0.0-7.0) % Baso % (Auto) 0.4 (0.0-1.5) % Neut # (Auto) 3.1 (1.4-5.7) K/uL Lymph # (Auto) 1.6 (0.6-2.4) K/uL Cameron # (Auto) 0.6 (0.0-0.8) K/uL Eos # (Auto) 0.1 (0.0-0.7) K/uL Baso # (Auto) 0.0 (0.0-0.1) K/uL Nucleated RBC % 0.0 /100WBC Nucleated RBCs # 0 K/uL INR 1.04 Sodium 137 (136-146) mmol/L Potassium 3.8 (3.5-5.1) mmol/L Chloride 102 (98-110) mmol/L Carbon Dioxide 23 (21-31) mmol/L BUN 6 (6.0-23.0) mg/dL Creatinine 0.7 (0.6-1.5) mg/dL Est Cr Clr Drug Dosing 101.01 mL/min Estimated GFR (MDRD) > 60.0 ml/min Glucose 83 (60-110) mg/dL Calcium 9.6 (8.8-10.8) mg/dL Med Orders - Current: Current Medications Acetaminophen (Tylenol) 650 mg PO Q4H PRN PRN Reason: Pain (Mild 1-3)/fever Hydrocodone Bitart/Acetaminophen ([place] 325-5 Mg) 1 tab PO Q4H PRN PRN Reason: Pain (moderate 4-6) Last Admin: 03/11/17 11:58 Dose: 1 tab Enoxaparin Sodium (Lovenox) 70 mg SUBCUT Q24H RAH Last Admin: 03/11/17 12:03 Dose: 70 mg Morphine Sulfate (Morphine) 2 mg IVPUSH Q2H PRN PRN Reason: Pain (severe 7-10) Stop: 03/11/17 16:01 Last Admin: 03/11/17 06:37 Dose: 2 mg Ondansetron HCl (Zofran Odt) 4 mg PO Q4H PRN PRN Reason: nausea, able to take PO Ondansetron HCl (Zofran) 4 mg IVPUSH Q4H PRN PRN Reason: Nausea Temazepam (Restoril) 15 mg PO BEDTIME PRN PRN Reason: Sleep Last Admin: 03/10/17 23:46 Dose: 15 mg Warfarin Sodium (Coumadin) 10 mg PO DAILY@1400 RAH Last Admin: 03/10/17 16:20 Dose: 10 mg Discontinued Medications Enoxaparin Sodium (Lovenox) 60 mg SUBCUT ONETIME ONE Stop: 03/10/17 13:47 Last Admin: 03/10/17 14:31 Dose: 60 mg Iopamidol (Isovue Multipack-370 (76%)) 50 ml IVPUSH ONETIME ONE Stop: 03/10/17 12:45 Last Admin: 03/10/17 12:44 Dose: 50 ml Ketorolac Tromethamine (Toradol) 30 mg IVPUSH ONETIME ONE Stop: 03/10/17 11:54 Last Admin: 03/10/17 11:56 Dose: 30 mg Morphine Sulfate (Morphine) 2 mg IVPUSH ONETIME ONE Stop: 03/10/17 15:21 Last Admin: 03/10/17 15:39 Dose: 2 mg *Q Meaningful Use (DIS) - VTE *Q VTE Criteria *Q: - Stroke *Q Stroke Criteria *Q: - AMI *Q AMI Criteria *Q:
--- NOTE | 2017-03-12 14:10 | CR ---
EXAM DATE: 03/10/17 PATIENT'S AGE: 37 Patient: ROBERTH DE GUZMAN Facility: [place], [place] Site . Site : 1980 Study: XRay Chest [id number]/27/2018 11:27:15 AM Ordering Physician: Doctor Sotomayor Final Report: INDICATION: Left rib pain started this morning. TECHNIQUE: AP portable chest x-ray. FINDINGS: Heart size normal. No pulmonary infiltrate. Linear atelectasis or scarring right mid lung extending to the infrahilar region. No obvious left-sided rib fractures. If suspicion for rib fracture or pathology persists suggest followup dedicated rib views. Metallic foreign body right lateral upper abdomen. Chest otherwise negative. Dictated by Anibal Teixeira MD @ Mar 10 2017 11:32AM (Electronic Signature) Report Signed by Proxy. ELIZABETH
--- NOTE | 2017-03-12 14:17 | CT ---
EXAM DATE: 03/10/17 PATIENT'S AGE: 37 Patient: ROBERTH DE GUZMAN Facility: [place], [place] Site . Site : 1980 Study: CT Chest Angio [id number]/27/2018 12:47:02 PM Ordering Physician: Doctor Sotomayor Final Report: INDICATION: Chest pain. Pain under the left breast. No known injury. Recent history of a fracture of the right lower extremity. Evaluate for pulmonary emboli. TECHNIQUE: Contrast-enhanced CT of the chest performed using the pulmonary embolism protocol. 50 cc nonionic Isovue-370 administered without complication. COMPARISON: AP portable chest March 10, 2017. FINDINGS: Adequate but not optimal opacification of the pulmonary arterial tree. There are filling defects within 2 right lower lobe pulmonary arteries, image 278 series 501 and image 58 series 504. There are bilateral lower lobe infiltrates or atelectasis with trace pleural fluid or pleural thickening at the lung bases. While pulmonary emboli are not confidently identified within the left upper or left lower lobes the left basilar infiltrate or atelectasis may be related to recent pulmonary emboli. There is a questionable filling defect within a right upper lobe pulmonary artery centrally on image 255 series 501. Both upper lobes are clear. The right middle lobe is clear. The thoracic aorta is of normal caliber. No lymphadenopathy. Hepatic fatty infiltration. Normal included skeletal thorax. IMPRESSION: 1. Pulmonary emboli best appreciated on the right. Pulmonary emboli within the left lower lobe are suspect. 2. Bilateral lower lobe infiltrates or atelectasis. Trace pleural fluid or pleural thickening. 3. These findings were called to the ER physician at 1:35 p.m. on March 10, 2017. Please note that all CT scans at this facility use dose modulation, iterative reconstruction, and/or weight-based dosing when appropriate to reduce radiation dose to as low as reasonably achievable. Dictated by Yoshi Adame MD @ Mar 10 2017 1:21PM (Electronic Signature) Report Signed by Proxy. ELIZABETH
== END 2017-03-11 14:00 | disposition home or self-care (01) ==
LOC: MW.ED 10:32 → MW.MS 13:46
PROVIDERS: ADMIT Family Medicine; ATTEND Family Medicine
DX: I26.99 Other pulmonary embolism without acute cor pulmonale (principal); I10 Essential (primary) hypertension; F17.210 Nicotine dependence, cigarettes, uncomplicated; S82.291D Other fracture of shaft of right tibia, subsequent encounter for closed fracture with routine healing; Z79.899 Other long term (current) drug therapy; Z79.01 Long term (current) use of anticoagulants; Z88.1 Allergy status to other antibiotic agents; Z88.0 Allergy status to penicillin; Z91.018 Allergy to other foods
CPT/HCPCS: 36415; 71046; 71275; 80048; 80053; 81001; 82150; 83690; 85025; 85379; 85610; 96372; 96374; 96375; 96376; 99285; A9270; G0378; J1650; J1885; J2270; Q9967; 99284

== ENCOUNTER 2020-06-12 22:44 | Emergency (ER) | payer BC ==
[2020-06-12 22:58] VITALS: BP 146/110; PULSE 101
[2020-06-12] MEDS ORDERED: Ibuprofen 600 MG Tab PO ONE (23:22)
--- NOTE | 2020-06-12 23:45 | EDM.PDOC ---
ED HPI GENERAL MEDICAL PROBLEM - General Chief Complaint: Upper Extremity Injury/Pain Stated Complaint: RT HAND FINGER INJURY Time Seen by Provider: 06/12/20 23:01 - History of Present Illness INITIAL COMMENTS - FREE TEXT/NARRATIVE: HISTORY AND PHYSICAL: History of present illness: This is a 40-year-old female who is right-hand dominant who presents ER today secondary to a deformity to her right index finger. Patient reports that she was picking individual up while she was at [employer] and fell downwards and hit her finger against concrete resulting in pain and deformity. Patient denies any other injury. Patient has any head trauma or loss of consciousness. Patient denies any recent fevers, shakes, chills, nausea, vomiting, diarrhea. Patient does admit to alcohol use earlier today. 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 Review of systems: As per history of present illness and below otherwise all systems reviewed and negative. Past medical history: As per history of present illness and as reviewed below otherwise noncontributory. Surgical history: As per history of present illness and as reviewed below otherwise noncontributory. Social history: No reported history of drug use. Family history: As per history of present illness and as reviewed below otherwise noncontributory. Physical exam: This patient was seen and evaluated during the 2019 SARS-CoV-2 novel coronavirus pandemic period. Community viral transmission is ongoing at time of this encounter and the emergency department is operating under pandemic response procedures. Constitutional: Patient is oriented to person, place, and time. Appears well- developed and well-nourished. No distress. HEENT: Moist mucous membranes Head: Normocephalic and atraumatic Eyes: Right eye exhibits no discharge. Left eye exhibits no discharge. No scleral icterus Neck: Normal range of motion. No tracheal deviation present. Cardiovascular: Normal rate and regular rhythm. Pulmonary: Effort normal, no respiratory distress. Abdominal: No distention Musculoskeletal: Normal range of motion Neurologic: Alert and oriented to person, place and time. Skin: [place], warm and dry. Psychiatric: Normal mood and affect. Behavior is normal. Judgment and thought content normal. Nursing note and vital signs have been reviewed Patient's ER physical exam is significant for an obvious deformity at the PIP joint of her right index finger. Patient is neurovascularly intact other than limited range of motion secondary to the deformity. 11:30 PM: Postreduction physical exam reveals neurovascularly intact. Full range of motion of DIP and PIP of right index finger. Good capillary refill. Sensation intact. Diagnostics: X-ray #1: Right index finger: Deformity and dislocation of PIP joint of right index finger. No fracture identified as interpreted by Dr. Thomas X-ray #2: Postreduction right index finger: Deformity of dislocation of PIP joint of right index finger is resolved. No fracture identified. Therapeutics: Right index finger reduced utilizing traction, flexion of PIP joint. Right finger dislocation reduced in ED without difficulty by Dr. Thomas. Patient w ill be placed in a finger splint and instructed to follow-up with her primary care physician for further evaluation. dme note: Finger splint applied to right index finger for stability of any ligamentous injury. This will need to stay in place for 1 week or until patient reevaluated orthopedics and cleared. This will benefit the patient by assisting with healing of ligamentous injury. Assessment and plan: 40-year-old female who presents ER today with right index finger PIP dislocation that was reduced in the ED. Patient given ibuprofen. X-ray reveals no acute fracture. Patient be given the phone number for orthopedics as well as her PCP for follow-up. Reassessment at the time of disposition demonstrates that the patient is in no acute distress. The patient has remained stable throughout the entire ED visit and is without objective evidence for acute process requiring urgent intervention or hospitalization. The patient is stable for discharge, counseling is provided as documented above, discussed symptomatic treatment and specific conditions for return. I have spoken with the patient/caregiver and discussed todays findings, in addition to providing specific details for the plan of care. Questions are answered and there is agreement with the plan. Definitive disposition and diagnosis as appropriate pending reevaluation and review of above. Right Finger-Index Pain Score (Numeric/FACES): 8 - Related Data Allergies Allergy/AdvReac Type Severity Reaction Status Date / Time amoxicillin Allergy Hives Verified 06/12/20 22:58 Penicillins Allergy Hives Verified 06/12/20 22:58 berries Allergy Hives Uncoded 06/12/20 22:58 Home Meds: Home Meds Escitalopram Oxalate [Lexapro] 10 mg PO DAILY 06/12/20 [History] Gabapentin [Neurontin] 100 mg PO DAILY 06/12/20 [History] Minocycline HCl 100 mg PO DAILY 06/12/20 [History] Norethindrone 0.35 mg PO DAILY 06/12/20 [History] traZODone 50 mg PO DAILY 06/12/20 [History] Past Medical History - Past Health History Medical/Surgical History: Denies Medical/Surgical History HEENT History: Reports: None Cardiovascular History: Reports: Hypertension Respiratory History: Reports: None Gastrointestinal History: Reports: None Genitourinary History: Reports: None Musculoskeletal History: Reports: Other (See Below) Other Musculoskeletal History: ACL Neurological History: Reports: None Psychiatric History: Reports: Anxiety, Depression Endocrine/Metabolic History: Reports: None Hematologic History: Reports: None Immunologic History: Reports: None Oncologic (Cancer) History: Reports: None Dermatologic History: Reports: None - Infectious Disease History Infectious Disease History: Reports: None - Past Surgical History Musculoskeletal Surgical History: Reports: Other (See Below) Other Musculoskeletal Surgeries/Procedures:: knee repair Social & Family History - Family History Family Medical History: No Pertinent Family History - Caffeine Use Caffeine Use: Reports: Coffee, Soda - Recreational Drug Use Recreational Drug Use: No Review of Systems - Review of Systems Review Of Systems: See Below ED EXAM, GENERAL - Physical Exam Exam: See Below ED TRAUMA EXTREMITY PROCEDURES - Joint Reduction Right Fingers Technique: Other (Traction and flexion of PIP joint of right index finger) Number of Attempts: 1 Post-Reduction Imaging: Completely Reduced, No Fracture Seen Joint Reduction Complications: No Course - Vital Signs Last Recorded V/S: Last Vital Signs Temp 98.1 F 06/12/20 22:55 Pulse 101 H 06/12/20 22:55 Resp 18 06/12/20 22:55 BP 146/110 H 06/12/20 22:55 Pulse Ox 98 06/12/20 22:55 - Orders/Labs/Meds Orders: Active Orders 24 hr Category Date Time Status Fingers Second Digit Rt F6 [CR] Stat Exams 06/12/20 23:04 Taken Fingers Second Digit Rt F6 [CR] Stat Exams 06/12/20 23:21 Taken DME for Discharge [COMM] Stat Oth 06/12/20 23:38 Ordered Meds: Medications Discontinued Medications Generic Name Dose Route Start Last Admin Trade Name Freq PRN Reason Stop Dose Admin Ibuprofen 600 mg 06/12/20 23:22 Ibuprofen 600 Mg Tab PO 06/12/20 23:23 ONETIME ONE Departure - Departure Time of Disposition: 23:45 Disposition: Home, Self-Care 01 Condition: Good Clinical Impression: Dislocation of proximal interphalangeal joint of right index finger Qualifiers: Encounter type: initial encounter Qualified Code(s): S63.280A - Dislocation of proximal interphalangeal joint of right index finger, initial encounter - Discharge Information Instructions: Finger or Thumb Dislocation, [id number] Referrals: Shantell Telles NP [Primary Care Provider] - Additional Instructions: You were seen and evaluated in the ER today secondary to dislocation of your right index finger. There was no fracture and found on the x-rays. Your finger was reduced in the ER and you will be placed in a splint. Please make appointment to follow-up with your family doctor or the orthopedic clinic for further evaluation to assure appropriate healing. Please keep your splint on until evaluated by your doctor or orthopedics. You can utilize ibuprofen 600 mg every 6 hours as needed for pain or discomfort. [facility] - [facility] Clinic [address], [address] [place] [address] The following information is given to patients seen in the emergency department who are being discharged to home. This information is to outline your options for follow-up care. We provide all patients seen in our emergency department with a follow-up referral. The need for follow-up, as well as the timing and circumstances, are variable depending upon the specifics of your emergency department visit. If you don't have a primary care physician on staff, we will provide you with a referral. We always advise you to contact your personal physician following an emergency department visit to inform them of the circumstance of the visit and for follow-up with them and/or the need for any referrals to a consulting specialist. The emergency department will also refer you to a specialist when appropriate. This referral assures that you have the opportunity for follow-up care with a specialist. All of these measure are taken in an effort to provide you with optimal care, which includes your follow-up. Under all circumstances we always encourage you to contact your private physician who remains a resource for coordinating your care. When calling for follow-up care, please make the office aware that this follow-up is from your recent emergency room visit. If for any reason you are refused follow-up, please contact the [facility] Emergency Department at and asked to speak to the emergency department charge nurse. [facility] - Primary Care [address] [place] [id number] [facility] [address] [place] [id number] Sepsis Event Note (ED) - Evaluation Sepsis Screening Result: No Definite Risk - Focused Exam Vital Signs: Vital Signs Temp Pulse Resp BP Pulse Ox 06/12/20 22:55 98.1 F 101 H 18 146/110 H 98 - My Orders Last 24 Hours: My Active Orders 06/12/20 23:04 Fingers Second Digit Rt F6 [CR] Stat 06/12/20 23:21 Fingers Second Digit Rt F6 [CR] Stat 06/12/20 23:38 DME for Discharge [COMM] Stat - Assessment/Plan Last 24 Hours: My Active Orders 06/12/20 23:04 Fingers Second Digit Rt F6 [CR] Stat 06/12/20 23:21 Fingers Second Digit Rt F6 [CR] Stat 06/12/20 23:38 DME for Discharge [COMM] Stat
--- NOTE | 2020-06-13 00:03 | CR ---
Indication: Injury, pain Technique: Three views right index finger Comparison: None Findings: Dorsal dislocation of the index finger middle phalanx in relation to the proximal phalanx. No associated fracture. Impression: Dorsal dislocation of the index finger middle phalanx at the PIP joint. Dictated by Mike Kwon MD @ 06/13/2020 12:02:[address] Mike Kwon @ Jun 13 2020 12:02AM
--- NOTE | 2020-06-13 00:41 | CR ---
Indication: Reduction Technique: Three views right index finger Comparison: Earlier this evening Findings: Interval reduction of dislocation at the PIP joint of the right index finger. No fracture. Impression: Interval reduction of dislocation at the right index finger PIP joint. Dictated by Mike Kwon MD @ 06/13/2020 12:38:[address] Mike Kwon @ Jun 13 2020 12:38AM
== END 2020-06-12 23:50 | disposition left against medical advice (07) ==
LOC: MW.ED 22:44
DX: S63.280A Dislocation of proximal interphalangeal joint of right index finger, initial encounter (principal); I10 Essential (primary) hypertension; Z88.0 Allergy status to penicillin; Z91.018 Allergy to other foods; Z79.899 Other long term (current) drug therapy; W23.0XXA Caught, crushed, jammed, or pinched between moving objects, initial encounter
CPT/HCPCS: 26770; 73140-26-F6; 73140-F6; 99282; 99283-25

== ENCOUNTER 2023-01-07 21:26 | Emergency (ER) | payer SELFPAY ==
[2023-01-07 22:19] LABS: INR 1.02 (0.86-1.11); PTT,PARTIAL THROMBOPLSTIN TIME 25.8 SEC (23.9-30.7)
[2023-01-07] MEDS ORDERED: Bacitracin Oint 1 GM U/D Packet TOP ONE (22:21)
[2023-01-07] MEDS ORDERED: Ondansetron 4 MG/2 ML SDV IVPUSH ONE ×2 (22:25→23:15)
[2023-01-07] MEDS ORDERED: Morphine 2 MG/ML SYRINGE IVPUSH ONE (22:25)
[2023-01-07] MEDS ORDERED: Naloxone 0.4 MG/ML SDV IVPUSH PRN (22:25)
[2023-01-07 22:27] LABS: A/G RATIO 0.9 (0.9-1.6); ALBUMIN 4.1 g/dL (3.4-5.0); BILIRUBIN TOTAL 0.5 mg/dL (0.2-1.0); CALCIUM 9.3 mg/dL (8.5-10.1); CARBON DIOXIDE,CO2 28.2 mmol/L (21.0-32.0); CREATININE 0.6 mg/dL (0.6-1.0); EST CRCL DRUG DOSING (CG) 107.67 mL/min; POTASSIUM,K 3.8 mmol/L (3.5-5.1); PROTEIN TOTAL,TP 8.7 g/dL (6.4-8.2)
[2023-01-07 22:29] LABS: BASOPHILS ABSOLUTE AUTO 0.03 K/uL (0.00-0.20); BASOPHILS PERCENT AUTO 0.4 % (0.0-1.0); EOSINOPHILS ABSOLUTE AUTO 0.07 K/uL (0.00-0.45); EOSINOPHILS PERCENT AUTO 0.9 % (0.0-6.0); HEMOGLOBIN 14.6 g/dL (12.0-16.0); IMMATURE GRAN ABSOLUTE AUTO 0.02 K/uL (0.00-0.05); IMMATURE GRAN PERCENT AUTO 0.3 % (0.0-0.4); LYMPHOCYTES ABSOLUTE AUTO 2.23 K/uL (1.00-4.80); LYMPHOCYTES PERCENT AUTO 29.7 % (24.0-44.0); MEAN CORPUSCULAR HEMOGLOBIN 37.8 pg (28.0-32.0); MEAN CORPUSCULAR HGB CONC 37.4 g/dL (32.0-36.0); MEAN PLATELET VOLUME 9.5 fL (9.4-12.3); MONOCYTES ABSOLUTE AUTO 0.66 K/uL (0.00-0.80); MONOCYTES PERCENT AUTO 8.8 % (0.0-8.0); NEUTROPHILS PERCENT AUTO 59.9 % (41.0-71.0); PLATELET COUNT,PLT 178 K/uL (150-400); RED BLOOD CELL COUNT 3.86 M/uL (4.10-5.30); WHITE BLOOD CELL COUNT,WBC 7.51 K/uL (3.9-11.3)
[2023-01-07] MEDS ORDERED: LORazepam 2 MG/ML SDV ONE (23:48)
[2023-01-07] MEDS ORDERED: LORazepam 2 MG/ML SDV IVPUSH ONE (23:50)
[2023-01-08 00:09] LABS: APPEARANCE,URINE CLEAR; BILIRUBIN,URINE NEGATIVE (NEGATIVE); COLOR,URINE YELLOW; GLUCOSE,URINE NEGATIVE (NEGATIVE); KETONES,URINE NEGATIVE (NEGATIVE); LEUKOCYTE ESTERASE,URINE NEGATIVE (NEGATIVE); NITRITE,URINE NEGATIVE (NEGATIVE); OCCULT BLOOD,URINE NEGATIVE (NEGATIVE); PH,URINE 5.5 (5.0-8.0); PROTEIN,URINE NEGATIVE (NEGATIVE); UROBILINOGEN,URINE 0.2 EU/dL (<2.0)
[2023-01-08 00:19] LABS: AMPHETAMINES SCREEN, URINE NEGATIVE (CUTOFF=500); BARBITURATE SCREEN,URINE NEGATIVE (CUTOFF=200); BENZODIAZEPINES SCREEN,URINE NEGATIVE (CUTOFF=150); BUPRENORPHINE SCREEN,URINE NEGATIVE (CUTOFF=10); METHADONE SCREEN, URINE NEGATIVE (CUTOFF=200); METHAMPHETAMINES SCREEN, URINE NEGATIVE (CUTOFF=500); OXYCODONE SCREEN,URINE NEGATIVE (CUT0FF=100); PCP SCREEN,URINE NEGATIVE (CUTOFF=25); THC SCREEN,URINE 20 NG/ML NEGATIVE (CUTOFF=50)
[2023-01-08 00:31] VITALS: BP 123/85; PULSE 91
== END 2023-01-08 00:30 ==
LOC: MW.ED 21:26
DX: S06.6X9A Traumatic subarachnoid hemorrhage with loss of consciousness of unspecified duration, initial encounter (principal); S01.01XA Laceration without foreign body of scalp, initial encounter; F10.129 Alcohol abuse with intoxication, unspecified; I10 Essential (primary) hypertension; Z88.0 Allergy status to penicillin; Z88.1 Allergy status to other antibiotic agents; Z91.018 Allergy to other foods; Z79.899 Other long term (current) drug therapy; W01.198A Fall on same level from slipping, tripping and stumbling with subsequent striking against other object, initial encounter; Y92.009 Unspecified place in unspecified non-institutional (private) residence as the place of occurrence of the external cause
CPT/HCPCS: 12001; 36415; 70450; 72125; 80053; 80305; 80307; 81003; 82947; 85025; 85610; 85730; 86850; 86900; 86901; 96374; 96375; 96376; 99291; G0390; J1953; J2060; J2270; J2405; J7060